=== PATIENT | male | born 1945 | race Caucasian/White ===

== ENCOUNTER 2019-07-12 10:30 | Outpatient (RCR) | payer OTHER, SELFPAY ==
--- NOTE | 2019-05-19 11:15 | HP.PTEVAL_ITS ---
Patient's Visit Information TARIK MEZA is a 74 year old M referred to Physical Therapy by [facility] with a diagnosis of L shoulder pain. Date of Evaluation: 05/19/19 Physical Therapist: Solo Bey, PT, ATC - Visit Plan Frequency: 2-3x /Week Duration: 4-6 Weeks Plan: L shoulder strengthening (rot cuff), scap stab ex's, UBE, and HEP - Subjective Findings: Pt reports he has had L shoulder pain for 7 years. Pt reports his pain had an insidious onset in nature. 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 Pt reports he gets occasional tingling and numbness in his L UE that radiates to the tips of his fingers. Pt denies sleep difficulty at this time as he takes Ambien to fall asleep. Pt denies PMHx. Pt is R hand dominant. Pt notes he has had B knee replacements in the past. Pt reports he is unable to perform any type of overhead lifting secondary to pain. Pt reports he has had injections into his L shoulder every 6-8 weeks for the past year. pt reports his L shoulder pain is a 6/10 at rest, and increases to 8/10 at worst. Pt reports he has had xrays which reveal OA, but not bad enough to have surgery at this time. - Pain L shoulder Pain Intensity (Out of 10): 6 Pain Intensity Range: 8 - Objective Neuro: B UE see sensation is WNL to light touch. B bicepital reflex= 2/3. Palpation: Pt presents with very little muscle mass this date. No obvious deformities at this time. Pt is very sore throughout the distribution of the supraspinatus muscle and LHB tendons. ROM: R shoulder flex= 130, abd= 130, ER= 35, IR WNL; L shoulder flex= 80, abd= 65, ER= 5, IR severely limited (belt line L5). MMT: R shoudler is 5/5 throughout. L shoulder is 3+/5 in available range and painful. Special testing: pt has a positive empty can test which reulted in great pain this date. - Goals Goal 1:: Decrease L shoulder pain x 50% to aid with IADL's Goal Time Frame: 4-6 Weeks Goal 2:: Increase L shoulder flex and abd ROM x 30 degrees to aid with overhead lifting. Goal Time Frame: 4-6 Weeks Goal 3:: Increase L shoulder strength x 1 grade to aid with ADL's Goal Time Frame: 4-6 Weeks Goal 4:: I with HEP Goal Time Frame: 4-6 Weeks - Rehabilitation Potential Physical Therapy Diagnosis: L shoulder pain, weakness, and limited ROM secondary to L shoulder rotator cuff syndrome Rehabilitation Potential: Good - Anticipated Interventions Patient/Client Instruction: Educate patient on: Condition, Plan of Care For the Purpose of:: To improve self management Therapeutic Exercise to Include: Strength training, Endurance training, Flexibilty training, Active ROM, Scapular Strength/Stabilization For the Purpose of:: To decrease pain, To increase ROM, To improve muscle performance and motor function Cryotherapy (ice pack, ice massage): Yes For the Purpose of:: To decrease pain Thank you for the opportunity to evaluate your patient. For Medicare and Medicare HMO plans, please review the plan of care and approve it. It will need to be FAXED BACK to us at [phone] for Medicare purposes. For Medicare only, by signing this I certify the plan of care. Please let me know if there are questions or concerns regarding this plan of care. Physician Signature: Date:
--- NOTE | 2019-07-12 10:58 | HP.PTDCSUM_ITS ---
HP - PT D/C Summary It has been my pleasure to treat TARIK MEZA under orders from ERIBERTO ARANA, for the diagnosis of L shoulder pain for a total of 15 visit(s). Discharge Date: Please see the following information for a summary of their discharge status. - Subjective Subjective: Pt is ready for discharge at this time. He leaves for [place] next week. - Pain L shoulder Pain Intensity (Out of 10): 3 - Overall Improvement % Improvement: 80 - Objective Objective/Function: L shoulder pain 3/10. L shoulder ROM: flex= 115, abd= 105, ER= 20 degrees. L shoulder MMT: Lt shoulder is grossly 4-/5 in available ROM. Pt is I with HEP - Goals Goal 1:: Decrease L shoulder pain x 50% to aid with IADL's Goal 2:: Increase L shoulder flex and abd ROM x 30 degrees to aid with overhead lifting. Goal 3:: Increase L shoulder strength x 1 grade to aid with ADL's Goal 4:: I with HEP - Plan Plan: Discharge - D/C Information If there are questions or concerns regarding this patient's physical therapy, antwan soliman feel free to call me at [phone]. Thank you for the referral of this patient. Sincerely, Solo Bey, PT, ATC
== END 2019-07-12 19:00 | disposition home or self-care (01) ==
LOC: PT 10:30
DX: M25.512 Pain in left shoulder (principal)
CPT/HCPCS: 97110; 97161; 97530

== ENCOUNTER → 2021-03-08 09:51 | Outpatient (CLI) | payer OTHER, SELFPAY ==
[2021-02-04 10:46] VITALS: BMI 23.0
--- NOTE | 2021-03-08 09:54 | MRI_ITS ---
STUDY: MR PELVIS WITHOUT CONTRAST (PROSTATE) REASON FOR EXAM: Male, 76 years old. Intermediate risk for prostate cancer, radiation planning TECHNIQUE: Standardized multiparametric prostate MRI with T1, T2, DWI/ADC sequences were obtained in 3 orthogonal planes, and dynamic contrast enhancement sequences. COMPARISON: 10/06/2020 FINDINGS: The prostate volume measures 13 mm3. The contours of the prostate gland are lobulated. There is mild mass effect on the bladder base. The transition zone is heterogenous. PI-RADS DWI score 2 - Hypointense within a BPH nodule on ADC. PI-RADS T2W score 2 - A mostly encapsulated nodule OR a homogeneous circumscribed nodule without encapsulation (atypical nodule) or a homogeneous mildly hypointense area between nodules.. The peripheral zone is heterogenous. PI-RADS DWI score 4 - Focal moderately hypointense on ADC (image 18 series 701) and markedly hyperintense (image 75 series 7) on high b-value DWI; <1.5cm on axial. PI-RADS T2W score 4 - Circumscribed, homogenous moderate hypointense focus/mass (image 14 series 5) confined to prostate and < 1.5 cm in greatest dimension. The seminal vesicles demonstrate normal margins and T2 signal pattern. No mass lesion or invasion depicted. The rectoprostatic angles are normal. Trabeculated urinary bladder, small volume. There is asymmetric soft tissue fullness of the left UVJ measuring 1 cm on image 8 of series 5. Mild pelvic free fluid posteriorly in the prostate and rectum The vascular structures of the are normal. The visualized hollow viscus structures are normal. No bone marrow edema or mass lesion depicted. MRI/Pelvis (Routine) IMPRESSION: 1. PIRADS v2.1 2019 -- 4 - High (clinically significant cancer is likely). 7 x 11 mm lesion of the left anterior-posterior boundary peripheral zone at the mid-base prostate. 2. No pelvic sidewall adenopathy. 3. Asymmetric thickening of the left UVJ/bladder wall (1 cm) not evident on prior MRI. May represent localized area of cystitis versus neoplasm. Cystoscopy recommended . 4. Mild pelvic free fluid posterior to the prostate. Electronically Signed: Flynn Quijano MD ([place]) at 14:34 EDT , Service support ,
== END ==
PROVIDERS: Referring Provider Student in an Organized Health Care Education/Training Program; Visit Provider Student in an Organized Health Care Education/Training Program
DX: C61 Malignant neoplasm of prostate (principal)
CPT/HCPCS: 72195

== ENCOUNTER 2022-04-15 06:52 | Day surgery (SDC) | payer OTHER, SELFPAY ==
[2021-02-04 10:46] VITALS: BMI 23.0
[2022-04-15] VITALS (7 sets, daily range): BP systolic 90–106; BP diastolic 52–69; PULSE 70–96; RESP 14–16; TEMP 36.3–36.6; O2SAT 98–100; BMI 21.5
--- NOTE | 2022-04-15 07:04 | HP.PCM_ITS ---
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: No Is patient in pain?: No Allergies gabapentin Allergy (Verified 03/21/22 09:35) AnaphylaxisIodinated Contrast Media [CONTRASTS] Allergy (Verified 03/21/22 09:35) Hivespregabalin Allergy (Verified 03/21/22 09:35) Anaphylaxistestosterone Allergy (Verified 03/21/22 09:35) Other Medications Ascorbic Acid [Vitamin C] 500 mg PO DAILY 02/04/21 [History Confirmed 03/21/22] acetaminophen 325 mg PO TID 02/04/21 [History Confirmed 03/21/22] apixaban 5 mg PO BID 02/04/21 [History Confirmed 03/21/22] aspirin 81 mg PO DAILY 02/04/21 [History Confirmed 03/21/22] atenolol 25 mg PO QHS 02/04/21 [History Confirmed 03/21/22] atorvastatin 20 mg PO QHS 02/04/21 [History Confirmed 03/21/22] bisacodyl 10 mg PO QHS 02/04/21 [History Confirmed 03/21/22] calcium carbonate 650 mg PO BID 02/04/21 [History Confirmed 03/21/22] cholecalciferol (vitamin D3) 2,000 unit PO DAILY 02/04/21 [History Confirmed 03/21/22] cyanocobalamin (vitamin B-12) 100 mcg PO DAILY 02/04/21 [History Confirmed 03/21/22] docusate sodium 200 mg PO QHS 02/04/21 [History Confirmed 03/21/22] ferrous sulfate 325 mg PO BID 02/04/21 [History Confirmed 03/21/22] folic acid 1 mg PO DAILY 02/04/21 [History Confirmed 03/21/22] levothyroxine 150 mcg PO DAILY 02/04/21 [History Confirmed 03/21/22] losartan 100 mg PO DAILY 02/04/21 [History Confirmed 03/21/22] omeprazole 20 mg PO BID 02/04/21 [History Confirmed 03/21/22] potassium citrate 10 meq PO 4X/DAY 02/04/21 [History Confirmed 03/21/22] tamsulosin 0.8 mg PO QHS 02/04/21 [History Confirmed 03/21/22] topiramate 200 mg PO BID 02/04/21 [History Confirmed 03/21/22] zolpidem 10 mg PO QHS 02/04/21 [History Confirmed 03/21/22] doxycycline monohydrate 100 mg tablet 100 mg PO? tab 03/21/22 [History Confirmed 03/21/22] PFSH Medical History? Afib BPH (benign prostatic hyperplasia) Coronary arteriosclerosis Hx of radiation therapy Hypothyroidism Kidney stones Normal colonoscopy Papillary thyroid carcinoma Peripheral neuropathy Prostate cancer PTSD (post-traumatic stress disorder) 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 Surgical History? History of bilateral knee replacement History of cataract removal with insertion of prosthetic lens History of foot surgery History of heart artery stent History of hernia repair History of oral surgery History of thyroidectomy Family History? Mother Breast cancer ?? ? remission for 20 years, returned and passed within a few weeksFather Prostate cancer,? Onset Age: 81 ?? ? passed in March 2007Brother AlcoholismGrandmother Pancreatic cancer ?? ? paternal CVA (cerebral vascular accident) ?? ? maternal Social History? Smoking Status:? Former smoker HPI HPI HPI: TARIK MEZA, is a 77 M who presents to the office today for surgical consultation regarding a colonoscopy.? Patient is referred by the [place] [facility] and a written compromise surgical consult and recommendations will return to them.? Patient has a known history of prostate cancer.? In addition he has atrial fibrillation.? Medications include low-dose aspirin and apixaban.? He is also chronically on omeprazole therapy 20 mg twice daily.? Most recent colonoscopy was June 2016 with recommendations for follow-up at 5 years.? The patient has a personal history of colon polyps but it appears that his most recent colonoscopy was not remarkable. He states that remotely he had an upper endoscopy but that has not been for multiple years.? He is completely dependent upon his omeprazole therapy.? He actually is not interested in coming off this medication.? He does not recall a previous history of Valderrama's.? He is not currently having any abdominal pain bright red blood per rectum or melena ROS General General: No weight change, appetite, fatigue, colon cancer, breast cancer or weakness HEENT HEENT: No difficulty swallowing, eye injury, eye surgery, swollen glands or mandy rseness Endo Endocrine: Yes thyroid disease and thyroid cancer; No diabetes mellitus, Hair loss, heat intolerance or cold intolerance Skin Skin: No rash or changing moles Breast Breast: No left breast lump, right breast lump, nipple discharge, breast pain, abnormal mammogram, abnormal US or breast enlargement Musc Musculoskeletal: Yes back problems and arthritis; No rheumatoid arthritis, gout or joint pain Cardio Cardiovascular: Yes atrial fibrillation and heart stent; No murmur, pacemaker, heart disease, high blood pressure, heart attack, palpitations, shortness of breat with exertion or chest pain Psych Psychiatric: No depression, anxiety or hearing voices Resp Respiratory: No shortness of breath, No sleep apnea, No cough, No COPD, No asthma, No emphysema and No wheezing Gastro Gastrointestinal: No abdominal pain, No nausea or vomiting, No diarrhea, No constipation, No blood in stool, No acid reflux, No hemorrhoids, No ulcers, No gallbladder problem and No black,tarry stools Celso Hematologic: Yes blood thinners, No blood disorders, No bleeding, No anemia and No blood clots Neuro Neurologic: No system reviewed and no additional complaints, except as documented, No as per HPI, No abnormal gait, No abnormal hearing, No abnormal movements, No abnormal speech, No behavioral changes, No burning sensations, No confusion, No convulsions, No disequilibrium, No dizziness, No localized weakness, No frequent falls, No headache(s), No lack of coordination, No loss of vision, No memory loss, No numbness, No other visual disturbances, No radicular pain, No restless legs, No sensory deficit, No syncope, No tingling, No tremor(s), No weakness and No other Exam Const General: cooperative, comfortable and no acute distress Orientation: alert and awake [facility] Head: normal to inspection Eyes General: appearance normal, both eyes and all related structures Chest Chest palpation & inspection: normal inspection of the chest Resp Effort & Inspection: normal respiratory effort Auscultation: clear to auscultation bilaterally Cardio Other: Irregular rhythm. GI Other: Soft, nontender, no hepatosplenomegaly, no masses, normal bowel sounds Musc Cervical Spine: normal cervical lordosis Skin General: no rashes or lesions noted Neuro General: patient alert, patient awake and patient oriented x3 Extrem Other: Chronic venous stasis disease with bilateral lower extremity support hose in place Psych Appearance: grossly normal Assessment and Plan Assessment and Plan (1) GERD (gastroesophageal reflux disease): ?Status:?Acute ?Qualifiers: ?Esophagitis presence:?esophagitis presence not specified? Qualified Code(s):?K21.9 - Gastro-esophageal reflux disease without esophagitis (2) Personal history of colonic polyps: ?Status:?Acute ?Plan - Dr. Johnny Tran MD: I recommended the patient a esophagogastroduodenoscopy with possible biopsy or polypectomy as indicated and combined with a colonoscopy with possible biopsy or polypectomy as indicated.? He is aware of the technique, benefit, risk, alternatives.? He is completely dependent upon omeprazole therapy for his reflux disease.? He has had a personal history of colon polyps.? Previous colonoscopy June 2016.? He will hold his apixaban 2 days preoperatively.? We will utilize the [place] prescribed movie prep.? We will utilize monitored anesthesia care.? He has had an opportunity to ask and have questions answered.? We will schedule procedure at his discretion. As of January 27, 2022 hemoglobin 13.1 with hematocrit of 39.1 and a platelet count of 182,000. Copy: [facility] Johnny Tran M.D., F.A.C.S. I have re-examined the patient. There are no clinical changes since date of exam. Johnny Tran M.D., F.A.C.S.
[2022-04-15] MEDS: Lactated Ringers 1,000 ML 15 ML IV (07:18)
--- NOTE | 2022-04-15 08:00 | IMM_PTH ---
PATIENT: TARIK MEZA LOC: EN U#:[id number] AGE/SX: 77/M ROOM: RE04/15/[address]: Dr. Johnny Tran MD : 1945 BED: DIS: 04/15/2022 SPEC #: [id number] RECD: 04/15/22 11:37 STATUS: ARASH KACI #: [id number] QUAN: 04/15/22 08:[address]: Johnny Tran DEPT: IMMUNOHISTOCHEMISTRY RECD BY: Belen Min ENTERED: 04/15/22 11:37 SP TYPE: IMMUNO OT DR: [facility] Tissues: A - Stomach, NOS Procedures: H Pylori (initial) PHYSICIAN & INSTITUTION [place] [id number] SPECIMEN INFORMATION: Tissue Source: A ? Antrum biopsy Clinical Info: GERD, colonic polyps Specimen Number: [id number] CPT code: 61164 METHODOLOGY: Deparaffinized sections of prefer/formalin-fixed tissue or PAP/DQ stained slides are incubated with monoclonal/polyclonal antibodies/oligonucleotide probes. Localization is made via biotin free immunoperoxidase method. Appropriate controls are performed and reacted as expected. Results on target cell population are indicated in the following table: RESULTS: ANTIBODY / CLONE RESULT Block A H Pylori (polyclonal) negative These tests were developed and their performance characteristics determined by [facility]. They may not have been cleared or approved by the U.S. Food and Drug Administration. The FDA has determined that such clearance or approval is not necessary. The above immunohistochemical/dualISH markers are ordered and reviewed by the Pathologist. INTERPRETATION: A. Antrum, biopsy: Negative for Helicobacter pylori organisms. AM:orquidea 04/16/2022
--- NOTE | 2022-04-15 08:00 | COLBX_PTH ---
PATIENT: TARIK MEZA LOC: EN U#:[id number] AGE/SX: 77/M ROOM: RE04/15/[address]: Dr. Johnny Tran MD : 1945 BED: DIS: 04/15/2022 SPEC #: [id number] RECD: 04/15/22 10:51 STATUS: ARASH KACI #: [id number] QUAN: 04/15/22 08:[address]: Johnny Tran DEPT: SURGICAL PATHOLOGY RECD BY: Geetha Oquendo ENTERED: 04/15/22 13:09 SP TYPE: COLON BX OTHR DR: [facility] Tissues: A - Gastric mucous membrane B - COLON BIOPSY C - Esophagus, NOS D - Rectum, NOS Procedures: Special Stain Group II Surgery Specimen Level IV Alcian Blue/PAS (control) HEADER OPERATION: Colonoscopy, EGD ([facility]), biopsy PRE-OP DIAGNOSIS: GERD, history colonic polyps TISSUE SUBMITTED: A ? Antrum biopsy for histo and H. pylori, B ? Greater curvature polyp biopsy, C ? Distal esophagus biopsy, D ? Rectal polyp biopsy MICROSCOPIC DIAGNOSIS A. Gastric antrum, biopsy: Mild chronic gastritis. See comment. B. Greater curvature gastric polyp, biopsy: Fundic gland polyp. C. Distal esophagus, biopsy: Gastroesophageal junctional mucosa with mild chronic inflammation. No evidence of goblet cell metaplasia. See comment. D. Rectal polyp, biopsy: Hyperplastic polyp. AM:orquidea 04/16/2022 COMMENT A. The results of immunohistochemistry for Helicobacter pylori will be reported separately ([id number]). C. Alcian blue/PAS stain with matched control supports the above diagnosis. MICROSCOPIC DESCRIPTION Slides are reviewed. GROSS DESCRIPTION A - Received in fixative is one container labeled with the patient's name and designated antrum biopsy. The specimen consists of two irregular fragments of light dunaway soft tissue that in aggregate measure 0.8 x 0.4 x 0.1 cm. The specimen is totally submitted in one cassette. B - Received in fixative is one container labeled with the patient's name and designated greater curvature polyp biopsy. The specimen consists of one irregular fragment of light dunaway soft tissue that measures 0.4 x 0.4 x 0.1 cm. The specimen is totally submitted in one cassette. C - Received in fixative is one container labeled with the patient's name and designated distal esophagus biopsy. The specimen consists of multiple irregular fragments of light dunaway soft tissue that in aggregate measure 1 x 0.3 x 0.1 cm. The specimen is totally submitted in one cassette. D - Received in fixative is one container labeled with the patient's name and designated rectal polyp biopsy. The specimen consists of one irregular fragment of light dunaway soft tissue that measures 0.3 x 0.3 x 0.1 cm. The specimen is totally submitted in one cassette. / SJ:rg 04/15/2022 TC:3 CPT: 53301 x4, 96193
--- NOTE | 2022-04-15 08:55 | OP.EGD_ITS ---
Patient Name: Brady Roland Procedure Date: 04/15/2022 8:18 AM Date of : 1945 Age: 77 Procedure: Upper GI endoscopy Indications: Epigastric abdominal pain Providers: Johnny Tran MD Medicines: See the Anesthesia note for documentation of the administered medications Complications: No immediate complications. Procedure: Pre-Anesthesia Assessment: - Prior to the procedure, a History and Physical was performed, and patient medications and allergies were reviewed. The patient's tolerance of previous anesthesia was also reviewed. The risks and benefits of the procedure and the sedation options and risks were discussed with the patient. All questions were answered, and informed consent was obtained. Prior Anticoagulants: The patient has taken Eliquis (apixaban), last dose was 2 days prior to procedure. ASA Grade Assessment: III - A patient with severe systemic disease. After reviewing the risks and benefits, the patient was deemed in satisfactory condition to undergo the procedure. After obtaining informed consent, the endoscope was passed under direct vision. Throughout the procedure, the patient's blood pressure, pulse, and oxygen saturations were monitored continuously. The colonoscope was introduced through the mouth, and advanced to the second part of duodenum. The upper GI endoscopy was accomplished without difficulty. The patient tolerated the procedure well. Scope In: 8:27:08 AM Scope Out: 8:34:33 AM Total Procedure Duration Time 0 hours 7 minutes 25 seconds Findings: LA Grade A (one or more mucosal breaks less than 5 mm, not extending between tops of 2 mucosal folds) esophagitis with no bleeding was found 41 cm from the incisors. Biopsies were taken with a cold forceps for histology. A 4 cm hiatal hernia was present. Localized moderate inflammation characterized by shallow ulcerations was found in the gastric antrum. Biopsies were taken with a cold forceps for histology. The examined duodenum was normal. Multiple sessile polyps with no bleeding and no stigmata of recent bleeding were found on the greater curvature of the stomach. The polyp was removed with a cold biopsy forceps. Resection and retrieval were complete. Impression: - LA Grade A reflux esophagitis. Biopsied. - 4 cm hiatal hernia. - Acute chronic gastritis. Biopsied. - Normal examined duodenum. Recommendation: - Discharge patient to home. - Resume previous diet. - Continue present medications. - Use sucralfate tablets 1 gram PO BID. Procedure Code(s): --- Professional --- 36204, Esophagogastroduodenoscopy, flexible, transoral; with biopsy, single or multiple Diagnosis Code(s): --- Professional --- K21.0, Gastro-esophageal reflux disease with esophagitis K44.9, Diaphragmatic hernia without obstruction or gangrene K29.00, Acute gastritis without bleeding K29.50, Unspecified chronic gastritis without bleeding R10.13, Epigastric pain CPT copyright 2017 [employer]. All rights reserved. The codes documented in this report are preliminary and upon professional nurse review may be revised to meet current compliance requirements. Johnny Tran MD 04/15/2022 8:54:56 AM This report has been signed electronically. Number of Addenda: 0 Note Initiated On: 04/15/2022 8:18 AM
--- NOTE | 2022-04-15 08:55 | OP.CCLET_ITS ---
04/15/2022 See above [facility] Re : Upper GI endoscopy procedure for Brady Roland Dear [facility] This procedure was performed on Friday, April 15, 2022. My impressions and recommendations are as follows: Impressions : - LA Grade A reflux esophagitis. Biopsied. - 4 cm hiatal hernia. - Acute chronic gastritis. Biopsied. - Normal examined duodenum. Recommendations : - Discharge patient to home. - Resume previous diet. - Continue present medications. - Use sucralfate tablets 1 gram PO BID. My findings are described in the full procedure note, which is enclosed. If I can be of further assistance, please feel free to contact me at Doctor phone number(s): Work: . Sincerely, Johnny Tran MD 04/15/2022 8:54:56 AM This report has been signed electronically.
--- NOTE | 2022-04-15 09:01 | OP.COLON_ITS ---
Patient Name: Brady Roland Procedure Date: 04/15/2022 8:34 AM Date of : 1945 Age: 77 Procedure: Colonoscopy Indications: High risk colon cancer surveillance: Personal history of colonic polyps Providers: Johnny Tran MD Medicines: See the Anesthesia note for documentation of the administered medications Patient Profile: Last Colonoscopy: June 2016. Complications: No immediate complications. Procedure: Pre-Anesthesia Assessment: - Prior to the procedure, a History and Physical was performed, and patient medications and allergies were reviewed. The patient's tolerance of previous anesthesia was also reviewed. The risks and benefits of the procedure and the sedation options and risks were discussed with the patient. All questions were answered, and informed consent was obtained. Prior Anticoagulants: The patient has taken Eliquis (apixaban), last dose was 2 days prior to procedure. ASA Grade Assessment: III - A patient with severe systemic disease. After reviewing the risks and benefits, the patient was deemed in satisfactory condition to undergo the procedure. After I obtained informed consent, the scope was passed under direct vision. Throughout the procedure, the patient's blood pressure, pulse, and oxygen saturations were monitored continuously. The colonoscope was introduced through the anus and advanced to the cecum, identified by appendiceal orifice and ileocecal valve. The colonoscopy was performed without difficulty. The patient tolerated the procedure well. The quality of the bowel preparation was fair. Scope In: 8:35:46 AM Scope Withdrawal Time 0 hours 7 minutes 35 seconds Scope Out: 8:47:33 AM Total Procedure Duration Time 0 hours 11 minutes 47 seconds Findings: Hemorrhoids were found on perianal exam. A 3 mm polyp was found in the rectum. The polyp was sessile. The polyp was removed with a cold biopsy forceps. Resection and retrieval were complete. Semi-liquid stool was found in the ascending colon, interfering with visualization. Impression: - Preparation of the colon was fair. - Hemorrhoids found on perianal exam. - One 3 mm polyp in the rectum, removed with a cold biopsy forceps. Resected and retrieved. - Stool in the ascending colon. Recommendation: - Discharge patient to home. - Resume previous diet. - Continue present medications. - Repeat colonoscopy for surveillance. Melanotic stool. Likely secondary to acute gastritis. Will add carafate to pt already on omeprazole. Procedure Code(s): --- Professional --- 82745, Colonoscopy, flexible; with biopsy, single or multiple Diagnosis Code(s): --- Professional --- Z86.010, Personal history of colonic polyps K64.9, Unspecified hemorrhoids K62.1, Rectal polyp CPT copyright 2017 [employer]. All rights reserved. The codes documented in this report are preliminary and upon tours hostess review may be revised to meet current compliance requirements. Johnny Tran MD 04/15/2022 9:00:47 AM This report has been signed electronically. Number of Addenda: 0 Note Initiated On: 04/15/2022 8:34 AM
--- NOTE | 2022-04-15 09:01 | OP.CCLET_ITS ---
04/15/2022 See above [facility] Re : Colonoscopy procedure for Brady Roland Dear [facility] This procedure was performed on Friday, April 15, 2022. My impressions and recommendations are as follows: Impressions : - Preparation of the colon was fair. - Hemorrhoids found on perianal exam. - One 3 mm polyp in the rectum, removed with a cold biopsy forceps. Resected and retrieved. - Stool in the ascending colon. Recommendations : - Discharge patient to home. - Resume previous diet. - Continue present medications. - Repeat colonoscopy for surveillance. Melanotic stool. Likely secondary to acute gastritis. Will add carafate to pt already on omeprazole. My findings are described in the full procedure note, which is enclosed. If I can be of further assistance, please feel free to contact me at Doctor phone number(s): Work: . Sincerely, Johnny Tran MD 04/15/2022 9:00:47 AM This report has been signed electronically.
--- NOTE | 2022-04-15 09:50 | SUR.PHASEII ---
PER PHARMACY, CARAFATE SCRIPT WOULD NEED TO BE PAID [place] SINCE [facility] NOT CONTRACTED WITH [facility]. PATIENT AGREED TO PURCHASE ONE WEEK OF SCRIPT AND THEN WILL SHOWROOM SALES ASSISTANT SCRIPT AT [facility] LOCATED ON [address], [place]. THIS RN ATTEMPTED TO CALL SCRIPT TO [facility] BUT INFORMED NEW SCRIPTS MUST BE SENT VIA eSCRIPT OR FAX. CONTACTED KERI JENNINGS, AT DR GRAVES'S OFFICE WHO WILL FAX/eSCRIPT TO [facility].
== END 2022-04-15 10:21 | disposition home or self-care (01) ==
LOC: EN 06:54 → AC 06:55
PROVIDERS: Referring Provider Surgery; Visit Provider Surgery
PROC: 0DJD8ZZ Inspection of Lower Intestinal Tract, Via Natural or Artificial Opening Endoscopic (ICD-10-PCS; CPT 45378; principal; 2022-04-15 07:55)
DX: K29.50 Unspecified chronic gastritis without bleeding (principal); I48.91 Unspecified atrial fibrillation; K62.1 Rectal polyp; Z86.010 Personal history of colon polyps; K31.7 Polyp of stomach and duodenum; K21.00 Gastro-esophageal reflux disease with esophagitis, without bleeding; N40.0 Benign prostatic hyperplasia without lower urinary tract symptoms; F43.10 Post-traumatic stress disorder, unspecified; G62.9 Polyneuropathy, unspecified; E03.9 Hypothyroidism, unspecified; Z87.442 Personal history of urinary calculi; Z85.850 Personal history of malignant neoplasm of thyroid; Z85.46 Personal history of malignant neoplasm of prostate; I25.10 Atherosclerotic heart disease of native coronary artery without angina pectoris; Z79.82 Long term (current) use of aspirin; Z79.01 Long term (current) use of anticoagulants; Z79.899 Other long term (current) drug therapy; Z95.5 Presence of coronary angioplasty implant and graft; Z87.891 Personal history of nicotine dependence; I10 Essential (primary) hypertension; K44.9 Diaphragmatic hernia without obstruction or gangrene; K64.9 Unspecified hemorrhoids
CPT/HCPCS: 45380; 43239; 88305; 88313; 88342; J7120; J2405

== ENCOUNTER 2023-02-25 00:32 | Emergency (ER) | payer OTHER, SELFPAY ==
[2021-02-04 10:46] VITALS: BMI 23.0
[2023-02-25 00:33] VITALS: BP 125/107; PULSE 86; RESP 15; TEMP 36.8; O2SAT 99
--- NOTE | 2023-02-25 02:01 | EX.ED.DYSGE1 ---
HPI History of Present Illness Chief Complaint: Complaint Narrative Narrative: Patient is a 78-year-old male with past medical history of prostate cancer status postradiation as well as paroxysmal atrial fibrillation on Eliquis. He had a cystoscopy done 5 days ago by the [facility] and was told he has a bladder stone. He states has been doing well but then on Thursday began with hematuria and around 4:00 pm stopped urinating. He states as time progressed he could not force any urine out and he began to have increasing pain in the abdomen and secondary to this comes in for evaluation [facility] Medical History (Updated 02/25/23 @ 05:[address] Calros Lopez, DO) Arthritis BPH (benign prostatic hyperplasia) Cancer Cardiology follow-up encounter Coronary arteriosclerosis DVT (deep venous thrombosis) Former smoker Gastric reflux History of atrial fibrillation History of echocardiogram History of edema History of pain when walking History of stress test Hx of radiation therapy Hypertension Hypothyroidism Injury of back Injury of head and neck Kidney stones Leg cramps Loss of hearing Low iron Normal colonoscopy Papillary thyroid carcinoma Peripheral neuropathy Prostate cancer Prostate disease PTSD (post-traumatic stress disorder) 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 Wears dentures Wears glasses Wears partial dentures Home Medications Ascorbic Acid [Vitamin C] 500 mg PO DAILY 02/04/21 [History Last Taken Unknown] acetaminophen 325 mg tablet 325 mg PO TID 02/04/21 [History Last Taken Unknown] apixaban 5 mg tablet 5 mg PO BID 02/04/21 [History Last Taken 04/12/22] aspirin 81 mg tablet,delayed release 81 mg PO DAILY 02/04/21 [History Last Taken 04/12/22] atenolol 25 mg tablet 25 mg PO QHS 02/04/21 [History Last Taken Unknown] atorvastatin 20 mg tablet 20 mg PO QHS 02/04/21 [History Last Taken Unknown] bisacodyl 5 mg tablet 10 mg PO QHS 02/04/21 [History Last Taken Unknown] calcium carbonate 600 mg calcium (1,500 mg) tablet 650 mg PO BID 02/04/21 [History Last Taken Unknown] cholecalciferol (vitamin D3) 50 mcg (2,000 unit) capsule 2,000 unit PO DAILY 02/04/21 [History Last Taken Unknown] cyanocobalamin (vitamin B-12) 100 mcg tablet 100 mcg PO DAILY 02/04/21 [History Last Taken Unknown] docusate sodium 100 mg capsule 200 mg PO QHS 02/04/21 [History Last Taken Unknown] ferrous sulfate 325 mg (65 mg iron) tablet 325 mg PO BID 02/04/21 [History Last Taken Unknown] folic acid 1 mg tablet 1 mg PO DAILY 02/04/21 [History Last Taken Unknown] levothyroxine 150 mcg tablet 150 mcg PO MOTUWETHFRSA 02/04/21 [History Last Taken 04/15/22 06:30] losartan 100 mg tablet 100 mg PO DAILY 02/04/21 [History Last Taken Unknown] omeprazole 20 mg capsule,delayed release 20 mg PO BID 02/04/21 [History Last Taken Unknown] potassium citrate 10 mEq (1,080 mg) tablet,extended release 10 meq PO 4X/DAY 02/04/21 [History Last Taken Unknown] tamsulosin 0.4 mg capsule 0.8 mg PO QHS 02/04/21 [History Last Taken Unknown] zolpidem 10 mg tablet 10 mg PO QHS 02/04/21 [History Last Taken Unknown] pregabalin 100 mg capsule 100 mg PO QHS 04/11/22 [History Last Taken Unknown] sucralfate 1 gram tablet (Carafate) 1 g PO BID #180 tabs 04/15/22 [Rx Last Taken Unknown] Allergy/AdvReac Type Severity Reaction Status Date / Time No Known Allergies Allergy Verified 02/25/23 00:37 Family History Mother Breast cancer remission for 20 years, returned and passed within a few weeks Father Prostate cancer, Onset Age: 81 passed in March 2007 Brother Alcoholism Grandmother Pancreatic cancer paternal CVA (cerebral vascular accident) maternal Surgical History (Updated 04/11/22 @ 09:30 by Melodie Dumont) History of bilateral knee replacement History of cardiac catheterization History of cataract removal with insertion of prosthetic lens History of foot surgery History of heart artery stent History of hernia repair History of oral surgery History of thyroidectomy Social History Smoking Status: Former smoker ROS ROS ED Constitutional Constitutional ED: Denies chills or fever(s) ENT ENT ED: Denies sore throat Cardiovascular Cardiovascular: Denies chest pain Respiratory/Chest Respiratory/Chest: Denies cough or dyspnea Gastrointestinal Gastrointestinal: Reports abdominal pain; Denies diarrhea, nausea or vomiting Genitourinary Genitourinary ED: Reports other Details: Positive anuria ; Denies dysuria Musculoskeletal Musculoskeletal: Denies back pain or myalgias Integumentary Denies rash Neurologic Neurologic: Denies headache(s) Hematologic/Lymphatic Hematologic/Lymphatic: Reports easy bleeding and easy bruising EXAM Physical Exam Const Vital Signs: 02/25/23 00:33 02/25/23 02:10 Temperature 98.2 F Temperature Source Oral Pulse Rate 86 72 Respiratory Rate 15 16 Blood Pressure 125/107 H 134/69 H Blood Pressure Mean 113 Pulse Ox 99 97 Oxygen Delivery Method Room Air Positive well nourished and well developed General Appearance ED: well developed HEENT HEENT Narrative: Normocephalic atraumatic Eyes PERRL and EOMs intact bilaterally Neck supple Resp normal respiratory effort and clear to auscultation bilaterally Cardio regular rate and regular rhythm GI GI Narrative: Patient has organomegaly/distention in the lower mid abdomen/suprapubic region consistent with a distended bladder and acute urinary retention. There is pain with palpation at the site. Remainder the abdominal exam is normal Auscultation: normoactive bowel sounds Palpation: soft Narrative: Dried blood noted at the urethral meatus no active bleeding or discharge present Back/Spine no CVA tenderness Extremity normal to inspection Neuro oriented x3 and CN's II-XII intact bilaterally Sensorium / Orientation: alert Psych mental status grossly normal Skin no rashes or lesions noted MDM MDM MDM Narrative Medical decision making narrative: Patient presented to the ER with stable vitals and a history consistent with acute urinary retention secondary to coagulation of blood. A Mathis catheter was placed and there was decompression of the patient's bladder and resolution of symptoms. The resulting fluid was a mixture of blood and urine. The patient was washed in the ER and the Mathis catheter continued to drain indicating there was no secondary obstruction. At this time vitals are stable he is only had roughly 8 hours of lack of urination and my concern for acute kidney injury is low. Also as vitals are stable such as blood pressure and heart rate my concern for acute blood loss anemia is low as well. Therefore do not feel there is need for laboratory studies or continuous irrigation. Patient will be discharged and he can follow-up with urology on an outpatient basis and he understands to return if there is lightheadedness or dizziness indicating persistent bleeding or clotting of the Mathis catheter tube. This plan of care was discussed with patient and family and both are agreeable to it History & Record Review Discussion w/independent historian: Patient and Family Discharge Plan Triage Chief Complaint: Complaint ED Provider: Carlos Lopez Dx/Rx/DC Orders Clinical Impression: Acute urinary retention, Prostate cancer, Current use of equipment operator intermodal yard anticoagulation Instructions: ED Urinary Retention, Male Prescriptions: No Action Ascorbic Acid [Vitamin C] 500 MG tablet 500 mg PO DAILY acetaminophen 325 MG tablet 325 mg PO TID atorvastatin 20 MG tablet 20 mg PO QHS cyanocobalamin (vitamin B-12) 100 MCG tablet 100 mcg PO DAILY atenolol 25 MG tablet 25 mg PO QHS aspirin 81 MG tablet,delayed release (DR/EC) 81 mg PO DAILY calcium carbonate 600 MG tablet 650 mg PO BID tamsulosin 0.4 MG capsule 0.8 mg PO QHS ferrous sulfate 325 MG tablet 325 mg PO BID levothyroxine 150 MCG tablet 150 mcg PO MOTUWETHFRSA Rx Instructions: takes 1/2 tab on Sundays docusate sodium 100 MG capsule 200 mg PO QHS omeprazole 20 MG capsule 20 mg PO BID folic acid 1 MG tablet 1 mg PO DAILY zolpidem 10 MG tablet 10 mg PO QHS losartan 100 MG tablet 100 mg PO DAILY bisacodyl 5 MG tablet 10 mg PO QHS cholecalciferol (vitamin D3) 2,000 UNIT capsule 2,000 unit PO DAILY apixaban 5 MG tablet 5 mg PO BID potassium citrate 10 MEQ tablet extended release 10 meq PO 4X/DAY pregabalin 100 mg Capsule 100 mg PO QHS sucralfate [Carafate] 1 gram tablet 1 g PO BID Qty: 180 2RF [facility] Referrals: Martin Figueroa MD [Med Staff - Active Staff] - [facility] [Primary Care Provider] - Activity Restrictions/Additional Instructions: Continue to hold your Eliquis secondary to the prostatic bleeding. If you feel lightheaded or dizzy with standing or you notice that there is no longer drainage from the catheter or have any further concerns please return for repeat evaluation. Otherwise follow-up with urology to discuss need for catheter removal. Disposition Disposition: Home, Self Care Discharge Date/Time: 02/25/23 02:17
[2023-02-25 02:10] VITALS: BP 134/69; PULSE 72; RESP 16; O2SAT 97
== END 2023-02-25 02:17 | disposition home or self-care (01) ==
PROVIDERS: Emergency Provider Emergency Medicine; Visit Provider Emergency Medicine
DX: R33.9 Retention of urine, unspecified (principal); I48.0 Paroxysmal atrial fibrillation; C61 Malignant neoplasm of prostate; I10 Essential (primary) hypertension; Z79.01 Long term (current) use of anticoagulants; I25.10 Atherosclerotic heart disease of native coronary artery without angina pectoris; Z87.891 Personal history of nicotine dependence; Z79.82 Long term (current) use of aspirin; Z86.718 Personal history of other venous thrombosis and embolism; E03.9 Hypothyroidism, unspecified; K21.9 Gastro-esophageal reflux disease without esophagitis; N40.0 Benign prostatic hyperplasia without lower urinary tract symptoms; Z95.5 Presence of coronary angioplasty implant and graft
CPT/HCPCS: 99282

== ENCOUNTER 2023-08-10 21:13 | Emergency (ER) | payer OTHER, SELFPAY ==
[2021-02-04 10:46] VITALS: BMI 23.0
[2023-08-10 21:14] VITALS: BP 145/64; PULSE 75; RESP 16; TEMP 36.1; O2SAT 99; BMI 22.7
[2023-08-10 23:10] LABS: Mucous, Urine 0 SEEN /hpf (<or=2+); Squamous Epithelial Cells - UA 0 SEEN /hpf (0-5)
[2023-08-10 23:12] LABS: Color, Urine Yellow (Yellow); Glucose, Dipstick Normal (Normal); Ketone-Dipstick Negative (Negative); Leukocyte Esterase-Dipstick 500 /ul (Negative); Nitrite-Dipstick Positive (Negative); Occult Blood-Urine 250 /ul (Negative); Protein-Dipstick 100 mg/dl (Negative); Urine Bilirubin Dipstick Negative (Negative); Urine Clarity Cloudy (Clear); Urine Urobilinogen Normal (Normal); Urine pH 6.5 (5.0 - 8.0)
[2023-08-10 23:40] LABS: Bacteria 3+ /hpf (None Seen); Red Blood Cells-Urine 25-50 SEEN /hpf (0-5); White Blood Cells >100 SEEN /hpf (0-5)
--- NOTE | 2023-08-11 00:32 | EDS_ITS ---
HPI History of Present Illness Chief Complaint: Complaint Informant: patient and spouse/S.O. Narrative Narrative: 78-year-old male presenting to the emergency department difficulty urinating. Patient has a history of prostate cancer treated with TURP and radiation. He states that earlier this year he had an episode of urinary retention he was treated with a catheter and he saw urology through the [facility] in [place]. In April he underwent surgery for a bladder stone. He states that since that time he has had some intermittent what he describes as pus drainage from the urethra. He states that tonight he could not urinate for about 5 to 6 hours. After trying multiple times he states he had a hard thing of pus come out and he was able to decompress his bladder. He denies any fevers. Denies any rectal pain. He is scheduled for a cystoscopy on the with the [facility] in [place] in the office. He is currently on apixaban. The patient notes chronic difficulty with his stream. [facility] Medical History Arthritis Bladder stones BPH (benign prostatic hyperplasia) Cancer Cardiology follow-up encounter Coronary arteriosclerosis DVT (deep venous thrombosis) Former smoker Gastric reflux History of atrial fibrillation History of echocardiogram History of edema History of pain when walking History of stress test Hx of radiation therapy Hypertension Hypothyroidism Injury of back Injury of head and neck Kidney stones Leg cramps Loss of hearing Low iron Normal colonoscopy Papillary thyroid carcinoma Peripheral neuropathy Prostate cancer Prostate disease PTSD (post-traumatic stress disorder) 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 Wears dentures Wears glasses Wears partial dentures Home Medications Ascorbic Acid [Vitamin C] 500 mg PO DAILY 02/04/21 [History Last Taken Unknown] acetaminophen 325 mg tablet 325 mg PO TID 02/04/21 [History Last Taken Unknown] apixaban 5 mg tablet 5 mg PO BID 02/04/21 [History Last Taken 04/12/22] aspirin 81 mg tablet,delayed release 81 mg PO DAILY 02/04/21 [History Last Taken 04/12/22] atenolol 25 mg tablet 25 mg PO QHS 02/04/21 [History Last Taken Unknown] atorvastatin 20 mg tablet 20 mg PO QHS 02/04/21 [History Last Taken Unknown] bisacodyl 5 mg tablet 10 mg PO QHS 02/04/21 [History Last Taken Unknown] calcium carbonate 600 mg calcium (1,500 mg) tablet 650 mg PO BID 02/04/21 [History Last Taken Unknown] cholecalciferol (vitamin D3) 50 mcg (2,000 unit) capsule 2,000 unit PO DAILY 02/04/21 [History Last Taken Unknown] cyanocobalamin (vitamin B-12) 100 mcg tablet 100 mcg PO DAILY 02/04/21 [History Last Taken Unknown] docusate sodium 100 mg capsule 200 mg PO QHS 02/04/21 [History Last Taken Unknown] ferrous sulfate 325 mg (65 mg iron) tablet 325 mg PO BID 02/04/21 [History Last Taken Unknown] folic acid 1 mg tablet 1 mg PO DAILY 02/04/21 [History Last Taken Unknown] levothyroxine 150 mcg tablet 150 mcg PO MOTUWETHFRSA 02/04/21 [History Last Taken 04/15/22 06:30] losartan 100 mg tablet 100 mg PO DAILY 02/04/21 [History Last Taken Unknown] omeprazole 20 mg capsule,delayed release 20 mg PO BID 02/04/21 [History Last Taken Unknown] potassium citrate 10 mEq (1,080 mg) tablet,extended release 10 meq PO 4X/DAY 02/04/21 [History Last Taken Unknown] tamsulosin 0.4 mg capsule 0.8 mg PO QHS 02/04/21 [History Last Taken Unknown] zolpidem 10 mg tablet 10 mg PO QHS 02/04/21 [History Last Taken Unknown] pregabalin 100 mg capsule 100 mg PO QHS 04/11/22 [History Last Taken Unknown] sucralfate 1 gram tablet (Carafate) 1 g PO BID #180 tabs 04/15/22 [Rx Last Taken Unknown] ciprofloxacin HCl 500 mg tablet 500 mg PO BID #10 TABLETS 08/11/23 [Rx Last Taken Unknown] Allergy/AdvReac Type Severity Reaction Status Date / Time No Known Allergies Allergy Verified 08/10/23 21:14 Family History Mother Breast cancer remission for 20 years, returned and passed within a few weeks Father Prostate cancer, Onset Age: 81 passed in March 2007 Brother Alcoholism Grandmother Pancreatic cancer paternal CVA (cerebral vascular accident) maternal Surgical History History of bilateral knee replacement History of cardiac catheterization History of cataract removal with insertion of prosthetic lens History of foot surgery History of heart artery stent History of hernia repair History of oral surgery History of thyroidectomy Social History Smoking Status: Former smoker ROS ROS ED Constitutional Constitutional ED: Denies chills or weight loss Eyes Eyes: Denies change in vision or diplopia ENT ENT ED: Denies ear pain, rhinorrhea or sore throat Cardiovascular Cardiovascular: Denies chest pain, orthopnea, palpitations or racing heartbeat Respiratory/Chest Respiratory/Chest: Denies cough, dyspnea or orthopnea Gastrointestinal Gastrointestinal: Denies abdominal pain, diarrhea, nausea or vomiting Genitourinary Genitourinary ED: Reports other Details: See history of present illness ; Denies dysuria, hematuria or urinary frequency Musculoskeletal Musculoskeletal: Denies arthralgias, back pain, myalgias or neck pain Integumentary Denies abscess or rash Neurologic Neurologic: Denies headache(s) or weakness Psychiatric Psychiatric: Denies anxiety, depression, suicidal ideation or suicidal thoughts Endocrine Endocrinology: Denies polydipsia, polyphagia or polyuria Allergic/Immunologic Allergic/Immunologic ED: Denies mouth swelling, tongue swelling or urticaria EXAM Physical Exam Const Vital Signs: 08/10/23 21:14 Temperature 97 F L Temperature Source Temporal Pulse Rate 75 Respiratory Rate 16 Blood Pressure 145/64 H Blood Pressure Mean 91 Pulse Ox 99 Oxygen Delivery Method Room Air Positive well nourished and well developed General Appearance ED: well developed HEENT Reports normocephalic, head/scalp atraumatic and moist mucous membranes Eyes PERRL and EOMs intact bilaterally Neck no lymphadenopathy, supple and no JVD Resp normal respiratory effort and clear to auscultation bilaterally Cardio regular rate, regular rhythm and no murmurs GI normal to inspection, nondistended, normoactive bowel sounds and non-tender Palpation: soft Narrative: Circumcised male. There is no drainage from the urethra. No erythema. Back/Spine no CVA tenderness and normal ROM Extremity normal to inspection General Extremety ED: Negative for edema General Extremity: Negative for edema Neuro oriented x3 and CN's II-XII intact bilaterally Sensorium / Orientation: alert Motor Exam: strength 5/5 throughout Psych mental status grossly normal Mood & Affect: Negative for depressed or tearful Skin no rashes or lesions noted and no wounds MDM MDM MDM Narrative Medical decision making narrative: I do not see bladder stone on bedside ultrasound. Urinalysis shows greater than 100 white cells 25-50 red cells positive nitrates 3+ bacteria and positive leukocyte esterase. This was sent for culture. Patient does not wish to have a catheter. He was encouraged to drink plenty of fluids. He has ciprofloxacin 500 mg tablets (9 pills) already at home and is wondering if this will work. I will give him a dose of ciprofloxacin here this will give him 5 full days of coverage. I will write a prescription for an additional 5 days but not to fill it until we get the culture back. He was instructed that if he did not receive a call back changing his antibiotic to go ahead and fill the prescription and take it. He was explicitly told to inform his surgeon/surgeon's office of the recent infection and the need for antibiotics. The patient understands that he is at risk for urinary retention and to return if that should occur and at that time he would need a catheter. Lab Data Attestation: I reviewed the patient's lab results. Labs: Laboratory Results - last 24 hr 08/10/23 23:00 Urine Color Yellow Urine Clarity Cloudy Urine pH 6.5 Ur Specific Kirby 1.010 Urine Protein 100 H Urine Glucose (UA) Normal Urine Ketones Negative Urine Occult Blood 250 H Urine Nitrite Positive H Urine Bilirubin Negative Urine Urobilinogen Normal Ur Leukocyte Esterase 500 H Urine RBC 25-50 SEEN Urine WBC >100 SEEN Ur Squamous Epith Cells 0 SEEN Urine Bacteria 3+ Urine Mucus 0 SEEN Discharge Plan Triage Chief Complaint: Complaint ED Provider: Lul Freeman Dx/Rx/DC Orders Clinical Impression: Acute UTI, Acute urinary retention Instructions: ED Bladder Infection, Male (Adult) Prescriptions: New ciprofloxacin HCl [ciprofloxacin HCl] 500 mg tablet 500 mg PO BID Qty: 10 0RF No Action Ascorbic Acid [Vitamin C] 500 MG tablet 500 mg PO DAILY acetaminophen 325 MG tablet 325 mg PO TID atorvastatin 20 MG tablet 20 mg PO QHS cyanocobalamin (vitamin B-12) 100 MCG tablet 100 mcg PO DAILY atenolol 25 MG tablet 25 mg PO QHS aspirin 81 MG tablet,delayed release (DR/EC) 81 mg PO DAILY calcium carbonate 600 MG tablet 650 mg PO BID tamsulosin 0.4 MG capsule 0.8 mg PO QHS ferrous sulfate 325 MG tablet 325 mg PO BID levothyroxine 150 MCG tablet 150 mcg PO MOTUWETHFRSA Rx Instructions: takes 1/2 tab on Sundays docusate sodium 100 MG capsule 200 mg PO QHS omeprazole 20 MG capsule 20 mg PO BID folic acid 1 MG tablet 1 mg PO DAILY zolpidem 10 MG tablet 10 mg PO QHS losartan 100 MG tablet 100 mg PO DAILY bisacodyl 5 MG tablet 10 mg PO QHS cholecalciferol (vitamin D3) 2,000 UNIT capsule 2,000 unit PO DAILY apixaban 5 MG tablet 5 mg PO BID potassium citrate 10 MEQ tablet extended release 10 meq PO 4X/DAY pregabalin 100 mg Capsule 100 mg PO QHS sucralfate [Carafate] 1 gram tablet 1 g PO BID Qty: 180 2RF Primary Care Provider: [facility] Referrals: [facility] [Primary Care Provider] - (Please call your surgeon's office tomorrow morning and inform them of the infection.) Activity Restrictions/Additional Instructions: Please cannot taking the ciprofloxacin 500 mg twice a day (this are the pills that you currently have) The urine culture should return in 48 to 72 hours. If the antibiotic needs to be changed we will call you. If however you do not receive a phone call please fill the rest of the ciprofloxacin prescription to complete a 10-day course. It is important for your surgeon to be aware of this infection. As discussed it is possible that you may need a Mathis catheter for urinary retention but at this time this has resolved and we will forego a catheter at this time Disposition Disposition: Home, Self Care
[2023-08-11] MEDS: Ciprofloxacin 500 MG Tablet PO (00:53)
== END 2023-08-11 00:54 | disposition home or self-care (01) ==
PROVIDERS: Emergency Provider Emergency Medicine; Visit Provider Emergency Medicine
DX: N39.0 Urinary tract infection, site not specified (principal); Z87.891 Personal history of nicotine dependence; I10 Essential (primary) hypertension; R33.9 Retention of urine, unspecified; I25.10 Atherosclerotic heart disease of native coronary artery without angina pectoris; E03.9 Hypothyroidism, unspecified; Z86.718 Personal history of other venous thrombosis and embolism
CPT/HCPCS: 81001; 87077; 87086; 87088; 87186; 99283

== ENCOUNTER 2023-09-25 20:10 | Emergency (ER) | payer OTHER, SELFPAY ==
[2021-02-04 10:46] VITALS: BMI 23.0
[2023-09-25 20:12] VITALS: BP 158/58; PULSE 80; RESP 18; TEMP 36.7; O2SAT 961; BMI 22.1
[2023-09-25 22:10] LABS: Mucous, Urine 0 SEEN /hpf (<or=2+); Squamous Epithelial Cells - UA 0 SEEN /hpf (0-5)
--- NOTE | 2023-09-25 22:11 | EX.ED.GUMALE ---
HPI History of Present Illness Chief Complaint: Complaint Narrative Narrative: 78-year-old male past medical history of ureteral scarring, had bladder surgery at [facility] during the summer, few months ago. He states they remove the large stone from his bladder. He presents with decreased urination and urinary retention since this morning. He relates history that he was recently released from [facility] from a hospital stay on Thursday of last week. Before then, he was told by his facility coordinator that his urine looked a little dirty. He states that he does not tolerate amoxicillin because it causes constipation, so he states that the facility coordinator did not write him an antibiotic. He denies any fevers or chills, no nausea or vomiting, but states since 10 AM, almost 12 hours ago, he has been having difficulty urinating. He would go small amounts, then later on in the day nothing at all would come out. [facility] Medical History Arthritis Bladder stones BPH (benign prostatic hyperplasia) Cancer Cardiology follow-up encounter Coronary arteriosclerosis DVT (deep venous thrombosis) Former smoker Gastric reflux History of atrial fibrillation History of echocardiogram History of edema History of pain when walking History of stress test Hx of radiation therapy Hypertension Hypothyroidism Injury of back Injury of head and neck Kidney stones Leg cramps Loss of hearing Low iron Normal colonoscopy Papillary thyroid carcinoma Peripheral neuropathy Prostate cancer Prostate disease PTSD (post-traumatic stress disorder) 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 Wears dentures Wears glasses Wears partial dentures Home Medications Ascorbic Acid [Vitamin C] 500 mg PO DAILY 02/04/21 [History Last Taken Unknown] acetaminophen 325 mg tablet 325 mg PO TID 02/04/21 [History Last Taken Unknown] apixaban 5 mg tablet 5 mg PO BID 02/04/21 [History Last Taken 04/12/22] aspirin 81 mg tablet,delayed release 81 mg PO DAILY 02/04/21 [History Last Taken 04/12/22] atenolol 25 mg tablet 25 mg PO QHS 02/04/21 [History Last Taken Unknown] atorvastatin 20 mg tablet 20 mg PO QHS 02/04/21 [History Last Taken Unknown] bisacodyl 5 mg tablet 10 mg PO QHS 02/04/21 [History Last Taken Unknown] calcium carbonate 600 mg calcium (1,500 mg) tablet 650 mg PO BID 02/04/21 [History Last Taken Unknown] cholecalciferol (vitamin D3) 50 mcg (2,000 unit) capsule 2,000 unit PO DAILY 02/04/21 [History Last Taken Unknown] cyanocobalamin (vitamin B-12) 100 mcg tablet 100 mcg PO DAILY 02/04/21 [History Last Taken Unknown] docusate sodium 100 mg capsule 200 mg PO QHS 02/04/21 [History Last Taken Unknown] ferrous sulfate 325 mg (65 mg iron) tablet 325 mg PO BID 02/04/21 [History Last Taken Unknown] folic acid 1 mg tablet 1 mg PO DAILY 02/04/21 [History Last Taken Unknown] levothyroxine 150 mcg tablet 150 mcg PO MOTUWETHFRSA 02/04/21 [History Last Taken 04/15/22 06:30] losartan 100 mg tablet 100 mg PO DAILY 02/04/21 [History Last Taken Unknown] omeprazole 20 mg capsule,delayed release 20 mg PO BID 02/04/21 [History Last Taken Unknown] potassium citrate 10 mEq (1,080 mg) tablet,extended release 10 meq PO 4X/DAY 02/04/21 [History Last Taken Unknown] tamsulosin 0.4 mg capsule 0.8 mg PO QHS 02/04/21 [History Last Taken Unknown] zolpidem 10 mg tablet 10 mg PO QHS 02/04/21 [History Last Taken Unknown] pregabalin 100 mg capsule 100 mg PO QHS 04/11/22 [History Last Taken Unknown] sucralfate 1 gram tablet (Carafate) 1 g PO BID #180 tabs 04/15/22 [Rx Last Taken Unknown] ciprofloxacin HCl 500 mg tablet 500 mg PO BID #10 TABLETS 08/11/23 [Rx Last Taken Unknown] ciprofloxacin HCl 500 mg tablet (Cipro) 500 mg PO BID #14 tabs 09/25/23 [Rx Last Taken Unknown] Allergy/AdvReac Type Severity Reaction Status Date / Time No Known Allergies Allergy Verified 09/25/23 20:14 Family History Mother Breast cancer remission for 20 years, returned and passed within a few weeks Father Prostate cancer, Onset Age: 81 passed in March 2007 Brother Alcoholism Grandmother Pancreatic cancer paternal CVA (cerebral vascular accident) maternal Surgical History History of bilateral knee replacement History of cardiac catheterization History of cataract removal with insertion of prosthetic lens History of foot surgery History of heart artery stent History of hernia repair History of oral surgery History of thyroidectomy Social History Smoking Status: Former smoker ROS ROS ED ROS Narrative Constitutional: No fever, no chills. HEENT: No sore throat. No neck pain. No loss of vision. No rhinorrhea. Cardiovascular: No chest pain. No palpitations. No pedal edema. Respiratory: No cough, no shortness of breath. Abdominal: No abdominal pain. No nausea. No vomiting. Genitourinary: Positive dysuria. No hematuria. Decreased urination/urinary retention. Musculoskeletal: No myalgias. No arthralgias. Neurologic: No headaches. No dizziness. No lightheadedness. Skin: No rash. No change in color. Psychiatric: No depression. No anxiety. EXAM Physical Exam Narrative Exam Narrative: Afebrile. Vital signs noted. HEENT: Normocephalic. Atraumatic. PERRL, EOMI. Neck soft and supple. No point tenderness or step off. Cardiovascular: Regular rate and rhythm. No murmurs, rubs, or gallops appreciated. Respiratory: No tachypnea. Lungs clear to auscultation bilaterally. Gastrointestinal: Abdomen soft, nontender, with normoactive bowel sounds. No rebound or guarding. Mathis catheter had already been placed per nursing protocol. Neurological: Awake. Alert. Nonfocal, nonlateralizing. Skin: No rash. Normal color. No pallor. Musculoskeletal: No pedal edema. Full range of motion extremities. Const Vital Signs: 09/25/23 20:12 Temperature 98.1 F Temperature Source Temporal Pulse Rate 80 Respiratory Rate 18 Blood Pressure 158/58 H Blood Pressure Mean 91 Pulse Ox 961 Oxygen Delivery Method Room Air MDM MDM MDM Narrative Medical decision making narrative: Concern is for urinary retention versus symptoms of UTI. As the patient was having symptoms of urinary retention, RN placed Mathis catheter per protocol. He now has approximately 400 mL of yellow to dark urine in his Mathis bag. His abdomen is soft currently. Urinalysis will be obtained along with urine culture. I will prescribe him antibiotics, and he states that he usually takes Cipro because this is the third or fourth UTI that has had since his surgery. I discussed with the patient his ureteral strictures, and the need for leaving the Mathis catheter in place because of his symptoms of urinary retention. I reviewed his urinalysis and there are 10-25 RBCs with 10-25 WBCs with 0 squamous epithelial cells and 1+ bacteria. This was sent for culture as this is a complicated UTI. He states Cipro worked for him in the past. He was given his first dose here, and a prescription written for the next 7 days. He was warned of the risk of tendon rupture and acknowledges an understanding. Additionally, he was given a Mathis leg bag. He will follow-up with his urologist in [place] within 1 week for voiding trial and Mathis catheter removal. I feel he can be discharged safely home with follow-up, and that he does not require observation or admission at this time. Return instructions to the emergency department were reviewed. Disposition is discharged home in stable condition. History & Record Review Discussion w/independent historian: Patient Additional record(s) reviewed:: Prior ED visit Lab Data Attestation: I reviewed the patient's lab results. Labs: Laboratory Results - last 24 hr 09/25/23 22:09 Urine Color Yellow Urine Clarity Cloudy Urine pH 7.0 Ur Specific [place] 1.015 Urine Protein 100 H Urine Glucose (UA) Normal Urine Ketones Negative Urine Occult Blood 250 H Urine Nitrite Negative Urine Bilirubin Negative Urine Urobilinogen Normal Ur Leukocyte Esterase 100 H Urine RBC 10-25 SEEN Urine WBC 10-25 SEEN Ur Squamous Epith Cells 0 SEEN Urine Bacteria 1+ Urine Mucus 0 SEEN Discharge Plan Triage Chief Complaint: Complaint ED Provider: Prince Lassiter Dx/Rx/DC Orders Clinical Impression: Complicated UTI (urinary tract infection), Urinary retention Instructions: ED Mathis Catheter, Care, ED Urinary Retention, Male, ED Urinary Tract Infections in Men Prescriptions: New ciprofloxacin HCl [Cipro] 500 mg tablet 500 mg PO BID Qty: 14 0RF No Action Ascorbic Acid [Vitamin C] 500 MG tablet 500 mg PO DAILY acetaminophen 325 MG tablet 325 mg PO TID atorvastatin 20 MG tablet 20 mg PO QHS cyanocobalamin (vitamin B-12) 100 MCG tablet 100 mcg PO DAILY atenolol 25 MG tablet 25 mg PO QHS aspirin 81 MG tablet,delayed release (DR/EC) 81 mg PO DAILY calcium carbonate 600 MG tablet 650 mg PO BID tamsulosin 0.4 MG capsule 0.8 mg PO QHS ferrous sulfate 325 MG tablet 325 mg PO BID levothyroxine 150 MCG tablet 150 mcg PO MOTUWETHFRSA Rx Instructions: takes 1/2 tab on Sundays docusate sodium 100 MG capsule 200 mg PO QHS omeprazole 20 MG capsule 20 mg PO BID folic acid 1 MG tablet 1 mg PO DAILY zolpidem 10 MG tablet 10 mg PO QHS losartan 100 MG tablet 100 mg PO DAILY bisacodyl 5 MG tablet 10 mg PO QHS cholecalciferol (vitamin D3) 2,000 UNIT capsule 2,000 unit PO DAILY apixaban 5 MG tablet 5 mg PO BID potassium citrate 10 MEQ tablet extended release 10 meq PO 4X/DAY pregabalin 100 mg Capsule 100 mg PO QHS sucralfate [Carafate] 1 gram tablet 1 g PO BID Qty: 180 2RF ciprofloxacin HCl [ciprofloxacin HCl] 500 mg tablet 500 mg PO BID Qty: 10 0RF [facility] [Primary Care Provider] - Activity Restrictions/Additional Instructions: Follow-up with your urologist in [place] next week. Disposition Disposition: Home, Self Care
[2023-09-25 22:15] LABS: Color, Urine Yellow (Yellow); Glucose, Dipstick Normal (Normal); Ketone-Dipstick Negative (Negative); Leukocyte Esterase-Dipstick 100 /ul (Negative); Nitrite-Dipstick Negative (Negative); Occult Blood-Urine 250 /ul (Negative); Protein-Dipstick 100 mg/dl (Negative); Specific Gravity, Urine 1.015 (1.002-1.030); Urine Bilirubin Dipstick Negative (Negative); Urine Clarity Cloudy (Clear); Urine Urobilinogen Normal (Normal)
[2023-09-25 22:31] LABS: Bacteria 1+ /hpf (None Seen); Red Blood Cells-Urine 10-25 SEEN /hpf (0-5); White Blood Cells 10-25 SEEN /hpf (0-5)
[2023-09-25] MEDS: Ciprofloxacin 500 MG Tablet PO (23:04)
[2023-09-25 23:08] VITALS: PULSE 69; RESP 15; O2SAT 98
== END 2023-09-25 23:23 | disposition home or self-care (01) ==
PROVIDERS: Emergency Provider Emergency Medicine; Visit Provider Emergency Medicine
DX: N39.0 Urinary tract infection, site not specified (principal); I10 Essential (primary) hypertension; I25.10 Atherosclerotic heart disease of native coronary artery without angina pectoris; R33.9 Retention of urine, unspecified; Z87.891 Personal history of nicotine dependence; Z85.46 Personal history of malignant neoplasm of prostate; Z86.718 Personal history of other venous thrombosis and embolism; Z79.01 Long term (current) use of anticoagulants; Z79.82 Long term (current) use of aspirin; Z79.899 Other long term (current) drug therapy; K21.9 Gastro-esophageal reflux disease without esophagitis; N40.0 Benign prostatic hyperplasia without lower urinary tract symptoms; Z96.653 Presence of artificial knee joint, bilateral
CPT/HCPCS: 51702; 81001; 87077; 87086; 87088; 99283

== ENCOUNTER 2023-09-29 13:03 | Emergency (ER) | payer OTHER, SELFPAY ==
[2021-02-04 10:46] VITALS: BMI 23.0
[2023-09-29 13:04] VITALS: BP 142/90; PULSE 73; RESP 16; TEMP 35.5; O2SAT 100; BMI 21.9
--- NOTE | 2023-09-29 14:17 | EX.ED.GUMALE ---
HPI History of Present Illness Chief Complaint: Complaint Informant: patient Narrative Narrative: Patient is a 78-year-old male with history of urinary retention and prior prostate cancer status post radiation treatments presenting with Mathis catheter not draining. Patient states he emptied the bag like normal around 1030 this morning. At 1230 when he checked there is nothing in the bag. He notes that he was leaking urine at his urethra. He feels like he needs to urinate but nothing coming out of his Mathis. He is currently on antibiotics for urinary tract infection. He states he was called recently and they switched the antibiotic. This was all done through our system. He denies any other complaints. States he is otherwise been feeling well. Chart review shows that patient was seen on 09/25 for acute urinary retention. Mathis catheter was placed and 400 cc of dark yellow urine out. Mathis catheter was kept in place. He was initially started on fluoroquinolone for antibiotics but was switched to Keflex 2 days ago after culture came back. [facility] Medical History Arthritis Bladder stones BPH (benign prostatic hyperplasia) Cancer Cardiology follow-up encounter Coronary arteriosclerosis DVT (deep venous thrombosis) Former smoker Gastric reflux History of atrial fibrillation History of echocardiogram History of edema History of pain when walking History of stress test Hx of radiation therapy Hypertension Hypothyroidism Injury of back Injury of head and neck Kidney stones Leg cramps Loss of hearing Low iron Normal colonoscopy Papillary thyroid carcinoma Peripheral neuropathy Prostate cancer Prostate disease PTSD (post-traumatic stress disorder) 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 Wears dentures Wears glasses Wears partial dentures Home Medications Ascorbic Acid [Vitamin C] 500 mg PO DAILY 02/04/21 [History Last Taken Unknown] acetaminophen 325 mg tablet 325 mg PO TID 02/04/21 [History Last Taken Unknown] apixaban 5 mg tablet 5 mg PO BID 02/04/21 [History Last Taken 04/12/22] aspirin 81 mg tablet,delayed release 81 mg PO DAILY 02/04/21 [History Last Taken 04/12/22] atenolol 25 mg tablet 25 mg PO QHS 02/04/21 [History Last Taken Unknown] atorvastatin 20 mg tablet 20 mg PO QHS 02/04/21 [History Last Taken Unknown] bisacodyl 5 mg tablet 10 mg PO QHS 02/04/21 [History Last Taken Unknown] calcium carbonate 600 mg calcium (1,500 mg) tablet 650 mg PO BID 02/04/21 [History Last Taken Unknown] cholecalciferol (vitamin D3) 50 mcg (2,000 unit) capsule 2,000 unit PO DAILY 02/04/21 [History Last Taken Unknown] cyanocobalamin (vitamin B-12) 100 mcg tablet 100 mcg PO DAILY 02/04/21 [History Last Taken Unknown] docusate sodium 100 mg capsule 200 mg PO QHS 02/04/21 [History Last Taken Unknown] ferrous sulfate 325 mg (65 mg iron) tablet 325 mg PO BID 02/04/21 [History Last Taken Unknown] folic acid 1 mg tablet 1 mg PO DAILY 02/04/21 [History Last Taken Unknown] levothyroxine 150 mcg tablet 150 mcg PO MOTUWETHFRSA 02/04/21 [History Last Taken 04/15/22 06:30] losartan 100 mg tablet 100 mg PO DAILY 02/04/21 [History Last Taken Unknown] omeprazole 20 mg capsule,delayed release 20 mg PO BID 02/04/21 [History Last Taken Unknown] potassium citrate 10 mEq (1,080 mg) tablet,extended release 10 meq PO 4X/DAY 02/04/21 [History Last Taken Unknown] tamsulosin 0.4 mg capsule 0.8 mg PO QHS 02/04/21 [History Last Taken Unknown] zolpidem 10 mg tablet 10 mg PO QHS 02/04/21 [History Last Taken Unknown] pregabalin 100 mg capsule 100 mg PO QHS 04/11/22 [History Last Taken Unknown] sucralfate 1 gram tablet (Carafate) 1 g PO BID #180 tabs 04/15/22 [Rx Last Taken Unknown] ciprofloxacin HCl 500 mg tablet 500 mg PO BID #10 TABLETS 08/11/23 [Rx Last Taken Unknown] ciprofloxacin HCl 500 mg tablet (Cipro) 500 mg PO BID #14 tabs 09/25/23 [Rx Last Taken Unknown] cephalexin 500 mg capsule 500 mg PO Q6 #28 CAPSULES 09/28/23 [Rx Last Taken Unknown] Allergy/AdvReac Type Severity Reaction Status Date / Time No Known Allergies Allergy Verified 09/29/23 13:06 Family History Mother Breast cancer remission for 20 years, returned and passed within a few weeks Father Prostate cancer, Onset Age: 81 passed in March 2007 Brother Alcoholism Grandmother Pancreatic cancer paternal CVA (cerebral vascular accident) maternal Surgical History History of bilateral knee replacement History of cardiac catheterization History of cataract removal with insertion of prosthetic lens History of foot surgery History of heart artery stent History of hernia repair History of oral surgery History of thyroidectomy Social History Smoking Status: Former smoker ROS ROS ED Constitutional Constitutional ED: Denies chills or fever(s) Gastrointestinal Gastrointestinal: Denies abdominal pain, nausea or vomiting Genitourinary Genitourinary ED: Reports other Details: Some sediment in his urine. No current hematuria. No drainage from Mathis catheter Musculoskeletal Musculoskeletal: Denies arthralgias or back pain Integumentary Denies rash Hematologic/Lymphatic Hematologic/Lymphatic: Reports easy bleeding EXAM Physical Exam Const Vital Signs: 09/29/23 13:04 09/29/23 15:29 Temperature 96 F L Temperature Source Temporal Pulse Rate 73 Respiratory Rate 16 14 Blood Pressure 142/90 H Blood Pressure Mean 107 Pulse Ox 100 Oxygen Delivery Method Room Air Positive well nourished and well developed General Appearance ED: well developed and NAD HEENT Reports moist mucous membranes Neck supple Resp normal respiratory effort and clear to auscultation bilaterally Cardio regular rate and regular rhythm GI non-tender and non-distended Narrative: Mathis catheter in place. Nursing staff is currently flushing it and it is draining yellow urine. Bleeding or trauma noticed at the penile meatus Extremity normal to inspection Neuro oriented x3 Sensorium / Orientation: alert Motor Exam: Negative for general weakness Psych mental status grossly normal MDM MDM MDM Narrative Medical decision making narrative: Evaluated for Mathis catheter malfunction. At likely was clogged. Nursing staff able to flush it and has approximately 400 cc of urine out. Patient is now asymptomatic. He is already on antibiotics for culture positive UTI. There is no significant sediment/blood draining so I do not think it needs to be exchanged for a larger Mathis catheter. In addition patient was making urine up to earlier today so I do not think we need BMP to check his kidney function as low suspicion for hydronephrosis/MOHINDER secondary to this obstruction. Monitor patient to make sure Mathis catheter continues to drain. re-evaluated. Continues to have clear yellow urine drained to his Mathis bag. Will be discharged home. Discharge Plan Triage Chief Complaint: Complaint ED Provider: Alis Haywood Dx/Rx/DC Orders Clinical Impression: Malfunction of Mathis catheter Instructions: ED Mathis Catheter, Care Prescriptions: No Action Ascorbic Acid [Vitamin C] 500 MG tablet 500 mg PO DAILY acetaminophen 325 MG tablet 325 mg PO TID atorvastatin 20 MG tablet 20 mg PO QHS cyanocobalamin (vitamin B-12) 100 MCG tablet 100 mcg PO DAILY atenolol 25 MG tablet 25 mg PO QHS aspirin 81 MG tablet,delayed release (DR/EC) 81 mg PO DAILY calcium carbonate 600 MG tablet 650 mg PO BID tamsulosin 0.4 MG capsule 0.8 mg PO QHS ferrous sulfate 325 MG tablet 325 mg PO BID levothyroxine 150 MCG tablet 150 mcg PO MOTUWETHFRSA Rx Instructions: takes 1/2 tab on Sundays docusate sodium 100 MG capsule 200 mg PO QHS omeprazole 20 MG capsule 20 mg PO BID folic acid 1 MG tablet 1 mg PO DAILY zolpidem 10 MG tablet 10 mg PO QHS losartan 100 MG tablet 100 mg PO DAILY bisacodyl 5 MG tablet 10 mg PO QHS cholecalciferol (vitamin D3) 2,000 UNIT capsule 2,000 unit PO DAILY apixaban 5 MG tablet 5 mg PO BID potassium citrate 10 MEQ tablet extended release 10 meq PO 4X/DAY pregabalin 100 mg Capsule 100 mg PO QHS sucralfate [Carafate] 1 gram tablet 1 g PO BID Qty: 180 2RF ciprofloxacin HCl [ciprofloxacin HCl] 500 mg tablet 500 mg PO BID Qty: 10 0RF ciprofloxacin HCl [Cipro] 500 mg tablet 500 mg PO BID Qty: 14 0RF cephalexin [cephalexin] 500 mg capsule 500 mg PO Q6 Qty: 28 0RF [facility]Primary [facility] Provider] - Activity Restrictions/Additional Instructions: Please continue to follow-up with your urologist outpatient. Continue the antibiotics you are prescribed (the cephalexin). Return to the ER if you have further issues with your Mathis catheter are/is not draining. Disposition Disposition: Home, Self Care Discharge Date/Time: 09/29/23 15:30
[2023-09-29 15:29] VITALS: RESP 14
== END 2023-09-29 15:30 | disposition home or self-care (01) ==
PROVIDERS: Emergency Provider Emergency Medicine; Visit Provider Emergency Medicine
DX: T83.098A Other mechanical complication of other urinary catheter, initial encounter (principal); I10 Essential (primary) hypertension; I25.10 Atherosclerotic heart disease of native coronary artery without angina pectoris; Z87.891 Personal history of nicotine dependence; Z85.46 Personal history of malignant neoplasm of prostate; Z86.718 Personal history of other venous thrombosis and embolism; Z79.01 Long term (current) use of anticoagulants; Z79.82 Long term (current) use of aspirin; Z79.899 Other long term (current) drug therapy; E03.9 Hypothyroidism, unspecified; K21.9 Gastro-esophageal reflux disease without esophagitis; N40.0 Benign prostatic hyperplasia without lower urinary tract symptoms; Z96.653 Presence of artificial knee joint, bilateral
CPT/HCPCS: 99282

== ENCOUNTER 2023-12-24 15:51 | Inpatient (IN) | payer OTHER, SELFPAY ==
[2021-02-04 10:46] VITALS: BMI 23.0
[2023-12-24] VITALS (8 sets, daily range): BP systolic 120–172; BP diastolic 73–90; PULSE 66–85; RESP 16–20; TEMP 36.3–36.8; O2SAT 97–100; BMI 21.8; BMI 21.4
--- NOTE | 2023-12-24 17:12 | EX.ED.DYSGE1 ---
HPI <GURMEET Araya - Last Filed: 12/24/23 21:48> History of Present Illness Chief Complaint: Complaint Narrative Narrative: 78-year-old male with PMH of prostate cancer, kidney stones, cardiac stents, A-fib on Plavix and Eliquis states 1 week ago he had bilateral flank pain that resolved on its own. Today around noon he started urinating blood and clots and developed abdominal pain. No fever or nausea or vomiting. He states in April 2023 he had a procedure to have a bladder stone removed and his prostate partially resected. He sees a [place] urologist in [place]. [facility] <GURMEET Araya - Last Filed: 12/24/23 21:48> [facility] Medical History (Updated 12/24/23 @ 22:[address] Syeda Levin MD) Arthritis Bladder stones BPH (benign prostatic hyperplasia) CAD (coronary artery disease) Cardiology follow-up encounter DVT (deep venous thrombosis) Former smoker Gastric reflux History of prostate cancer History of thyroid cancer HLD (hyperlipidemia) Hx of radiation therapy Hypertension Hypothyroidism Injury of back Kidney stones Loss of hearing PAF (paroxysmal atrial fibrillation) Peripheral neuropathy PTSD (post-traumatic stress disorder) 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 Wears glasses Wears partial dentures Home Medications Ascorbic Acid [Vitamin C] 500 mg PO DAILY 02/04/21 [History Last Taken Unknown] acetaminophen 325 mg tablet 650 mg PO TID fever or pain 02/04/21 [History Last Taken Unknown] apixaban 5 mg tablet 5 mg PO BID 02/04/21 [History Last Taken 04/12/22] aspirin 81 mg tablet,delayed release 81 mg PO DAILY 02/04/21 [History Last Taken 04/12/22] atenolol 25 mg tablet 25 mg PO QHS HEART 02/04/21 [History Last Taken Unknown] atorvastatin 20 mg tablet 20 mg PO QHS CHOLESTEROL 02/04/21 [History Last Taken Unknown] bisacodyl 5 mg tablet 10 mg PO QHS LAXATIVE 02/04/21 [History Last Taken Unknown] calcium carbonate 600 mg calcium (1,500 mg) tablet 650 mg PO BID 02/04/21 [History Last Taken Unknown] cholecalciferol (vitamin D3) 50 mcg (2,000 unit) capsule 2,000 unit PO DAILY 02/04/21 [History Last Taken Unknown] cyanocobalamin (vitamin B-12) 100 mcg tablet 100 mcg PO DAILY 02/04/21 [History Last Taken Unknown] ferrous sulfate 325 mg (65 mg iron) tablet 325 mg PO BID 02/04/21 [History Last Taken Unknown] folic acid 1 mg tablet 1 mg PO DAILY 02/04/21 [History Last Taken Unknown] levothyroxine 150 mcg tablet 150 mcg PO MOTUWETHFRSA 02/04/21 [History Last Taken 04/15/22 06:30] losartan 100 mg tablet 100 mg PO DAILY 02/04/21 [History Last Taken Unknown] omeprazole 20 mg capsule,delayed release 20 mg PO BID 02/04/21 [History Last Taken Unknown] potassium citrate 10 mEq (1,080 mg) tablet,extended release 10 meq PO 4X/DAY 02/04/21 [History Last Taken Unknown] zolpidem 10 mg tablet 10 mg PO QHS SLEEP 02/04/21 [History Last Taken Unknown] topiramate 200 mg tablet (Topamax) 200 mg PO BID 12/24/23 [History Last Taken Unknown] Allergy/AdvReac Type Severity Reaction Status Date / Time No Known Allergies Allergy Verified 12/24/23 15:52 Family History Mother Breast cancer remission for 20 years, returned and passed within a few weeks Father Prostate cancer, Onset Age: 81 passed in March 2007 Brother Alcoholism Grandmother Pancreatic cancer paternal CVA (cerebral vascular accident) maternal Surgical History (Updated 12/24/23 @ 22:[address] Syeda Levin MD) History of bilateral knee replacement History of cardiac catheterization History of cataract removal with insertion of prosthetic lens History of foot surgery History of heart artery stent History of hernia repair History of oral surgery History of thyroidectomy Social History (Updated 12/24/23 @ 21:[address] Syeda Levin MD) household members: spouse Smoking Status: Former smoker alcohol intake: never substance use type: does not use ROS <GURMEET Araya - Last Filed: 12/24/23 21:48> ROS ED ROS Narrative Constitutional: Negative for fever, chills, malaise. GI: Positive for abdominal pain. Negative for nausea, vomiting. : Positive for hematuria. EXAM <GURMEET Araya - Last Filed: 12/24/23 21:48> Physical Exam Narrative Exam Narrative: CONST: Patient sitting in no acute distress. EYES: Normal inspection. NECK: Normal inspection. RESP: No respiratory distress, CTAB. CVS: Regular rate and rhythm, no murmur, no gallop. ABD: Soft with suprapubic tenderness, no guarding or rebound. Back: Normal inspection, no CVA tenderness. SKIN: Color normal, no rash, warm, dry, intact. EXTREMITIES: Normal appearance, no pedal edema. NEURO: Oriented x4. PSYCH: Normal affect. Const Vital Signs: 12/24/23 15:52 12/24/23 17:46 12/24/23 19:00 Temperature 98.0 F Temperature Source Temporal Pulse Rate 80 72 85 Respiratory Rate 18 19 H 20 H Blood Pressure 141/90 H 153/83 H 128/73 H Blood Pressure Mean 107 106 91 Pulse Ox 100 100 97 Oxygen Delivery Method Room Air Room Air Room Air 12/24/23 15:54 12/24/23 18:54 12/24/23 21:21 Temperature 98 F 97.3 F L Temperature Source Oral Temporal Pulse Rate 80 72 70 Respiratory Rate 18 16 16 Blood Pressure 141/90 H 172/82 H 169/82 H Blood Pressure Mean 107 112 111 Pulse Ox 98 99 99 Oxygen Delivery Method Room Air Room Air Room Air <Dr. Lul Freeman DO - Last Filed: 12/24/23 23:56> Physical Exam Const Vital Signs: 12/24/23 15:52 12/24/23 17:46 12/24/23 19:00 Temperature 98.0 F Temperature Source Temporal Pulse Rate 80 72 85 Respiratory Rate 18 19 H 20 H Blood Pressure 141/90 H 153/83 H 128/73 H Blood Pressure Mean 107 106 91 Pulse Ox 100 100 97 Oxygen Delivery Method Room Air Room Air Room Air 12/24/23 15:54 12/24/23 18:54 12/24/23 21:21 Temperature 98 F 97.3 F L Temperature Source Oral Temporal Pulse Rate 80 72 70 Respiratory Rate 18 16 16 Blood Pressure 141/90 H 172/82 H 169/82 H Blood Pressure Mean 107 112 111 Pulse Ox 98 99 99 Oxygen Delivery Method Room Air Room Air Room Air MDM <GURMEET Araya - Last Filed: 12/24/23 21:48> MDM MDM Narrative Medical decision making narrative: History gathered from: Patient and Differential: Urinary retention, bladder outlet obstruction, kidney stone Consults: Urology, hospitalist Patient had hematuria with clots and then urinary retention since around noon. He is on Plavix and Eliquis for cardiac stents and A-fib, respectively. He appears well and nontoxic. Vital signs stable. Abdomen soft with suprapubic tenderness. Bladder scan shows retention with 375 cc. Nursing staff were unable to place a Mathis secondary to small urethral size. Patient states he has a lot of scar tissue. Labs show normal white count of 9.1, hemoglobin 13.7, BUN 26, creatinine 1.15. CT scan shows bilateral hydroureteronephrosis without evidence of obstructive stone. I consulted Dr. Figueroa who will come in to place a Mathis. Urology did a flexible cystoscopy and placed a 20 Romansh catheter and manually irrigated out significant clots and blood. Patient will be admitted to the hospitalist for observation. Case was discussed with the hospitalist. Lab Data Attestation: I reviewed the patient's lab results. Labs: Laboratory Results - last 24 hr 12/24/23 17:37 WBC 9.1 RBC 4.28 L Hgb 13.7 Hct 43.5 MCV 101.6 H MCH 32.0 MCHC 31.5 L RDW Std Deviation 47.6 H RDW Coeff of Garth 12.7 Plt Count 218 MPV 10.4 Immature Gran % (Auto) 0.400 Neut % (Auto) 75.0 H Lymph % (Auto) 16.4 L [place] % (Auto) 7.2 Eos % (Auto) 0.7 Baso % (Auto) 0.3 Absolute Neuts (auto) 6.9 Absolute Lymphs (auto) 1.50 Nucleated RBC % 0 Sodium 144 Potassium 4.2 Chloride 113 H Carbon Dioxide 23.0 Anion Gap 8 BUN 26 H Creatinine 1.15 Estim Creat Clear Calc 59.60 Est GFR (MDRD) Af Amer 79 Est GFR (MDRD) Non-Af 66 BUN/Creatinine Ratio 22.6 H Glucose 104 Calcium 9.4 Radiography Diagnostic Testing: Clinical Impression(s) from Imaging Studies Abdomen/Pelvis CT 12/24/23 17:51 IMPRESSION: Multiple nonobstructing right renal calculi. Small left renal cyst which will not require additional imaging Moderate bilateral hydroureteronephrosis without evidence for ureteral calculus possibly due to bladder outlet obstruction although cannot definitively exclude bladder wall mass in association with intravesical hemorrhage. Electronically Signed: Tristan Steiner MD at 18:46 EST , <Dr. Lul Freeman, DO - Last Filed: 12/24/23 23:56> [facility] Narrative Medical decision making narrative: History gathered from: Patient and Differential: Urinary retention, bladder outlet obstruction, kidney stone Consults: Urology, hospitalist Patient had hematuria with clots and then urinary retention since around noon. He is on Plavix and Eliquis for cardiac stents and A-fib, respectively. He appears well and nontoxic. Vital signs stable. Abdomen soft with suprapubic tenderness. Bladder scan shows retention with 375 cc. Nursing staff were unable to place a Mathis secondary to small urethral size. Patient states he has a lot of scar tissue. Labs show normal white count of 9.1, hemoglobin 13.7, BUN 26, creatinine 1.15. CT scan shows bilateral hydroureteronephrosis without evidence of obstructive stone. I consulted Dr. Figueroa who will come in to place a Mathis. Urology did a flexible cystoscopy and placed a 20 Romansh catheter and manually irrigated out significant clots and blood. Patient will be admitted to the hospitalist for observation. Case was discussed with the hospitalist. I have personally performed a face to face assessment of the patient and have reviewed the ALEJANDRO Note. I performed a substantive portion of the visit including all aspects of the following. My romero findings include: History is 78-year-old male with difficulty urinating with hematuria and clots. Patient has seen urology at the [place]. I was able to look up his urologist who is a nurse practitioner there. He has a history of prostate cancer. Patient is on blood thinners. Exam is patient appears uncomfortable in the bed. No significantly distended bladder on palpation. Medical Decison Making creatinine normal white count 9.1. CT of the pelvis with bilateral hydronephroureter. There appears to be a large amount of debris in the bladder consistent with blood. Difficult to exclude mass. Nursing unable to place Mathis catheter. Urology was contacted and came to the emergency department placed catheter. Patient will be admitted. History & Record Review Discussion w/independent historian: Patient and Family Lab Data Labs: Laboratory Results - last 24 hr 12/24/23 17:37 WBC 9.1 RBC 4.28 L Hgb 13.7 Hct 43.5 MCV 101.6 H MCH 32.0 MCHC 31.5 L RDW Std Deviation 47.6 H RDW Coeff of Garth 12.7 Plt Count 218 MPV 10.4 Immature Gran % (Auto) 0.400 Neut % (Auto) 75.0 H Lymph % (Auto) 16.4 L [place] % (Auto) 7.2 Eos % (Auto) 0.7 Baso % (Auto) 0.3 Absolute Neuts (auto) 6.9 Absolute Lymphs (auto) 1.50 Nucleated RBC % 0 Sodium 144 Potassium 4.2 Chloride 113 H Carbon Dioxide 23.0 Anion Gap 8 BUN 26 H Creatinine 1.15 Estim Creat Clear Calc 59.60 Est GFR (MDRD) Af Amer 79 Est GFR (MDRD) Non-Af 66 BUN/Creatinine Ratio 22.6 H Glucose 104 Calcium 9.4 Radiography Diagnostic Testing: Clinical Impression(s) from Imaging Studies Abdomen/Pelvis CT 12/24/23 17:51 IMPRESSION: Multiple nonobstructing right renal calculi. Small left renal cyst which will not require additional imaging Moderate bilateral hydroureteronephrosis without evidence for ureteral calculus possibly due to bladder outlet obstruction although cannot definitively exclude bladder wall mass in association with intravesical hemorrhage. Electronically Signed: Tristan Steiner MD at 18:46 EST Reading Location ID and State: [facility] / ID Tel , Service support , Management Discussion w/another healthcare provider: Hospitalist and Manager Cardiology (Urology (Dr. Figueroa)) Discharge Plan Dx/Rx/DC Orders Clinical Impression: Acute urinary retention, Hematuria, Difficult Mathis catheter placement Disposition Disposition: Acute Care Hospital [facility] Discharge Date/Time: 12/24/23 23:16
[2023-12-24] MEDS: Morphine 4 MG/ML Syringe IV ×2 (17:34→19:03)
[2023-12-24] MEDS: 0.9% Normal Saline (1000mL) 1,000 ML 999 ML IV (17:34)
[2023-12-24] MEDS: Ondansetron 4 MG/2 ML Vial IV (17:34)
--- NOTE | 2023-12-24 17:51 | CT_ITS ---
STUDY: CT ABDOMEN AND PELVIS WITHOUT CONTRAST REASON FOR EXAM: Male, 78 years old. hematuria RADIATION DOSAGE (If Supplied By Facility): CTDIvol = ( 8.91 ) mGy, DLP = ( 483.26 ) mGycm TECHNIQUE: Transaxial images were obtained from the dome of the diaphragm to the symphysis pubis without oral contrast, and without intravenous contrast. Sagittal and coronal images were reconstructed. Individualized dose optimization techniques were used for this CT. COMPARISON: None. FINDINGS: The visualized lung bases are unremarkable. Heart size is normal. There is multivessel coronary artery disease. Normal liver. Multiple tiny calcified gallstones without evidence for pericholecystic edema.. Normal spleen. Normal pancreas. Normal bilateral adrenal glands. There are 3 nonobstructing right renal calculi. There is bilateral hydroureteronephrosis without evidence for ureteral calculus to the level of the base of the bladder trigone. Small simple cyst in the left kidney which will not require additional imaging Normal visualized stomach. Normal small intestine. Normal colon. The appendix is visualized and appears normal. Atherosclerotic changes of the aorta without evidence for aneurysm. Normal inferior vena cava. Normal retroperitoneum. There is hemorrhage noted within the bladder which is distended. Cannot exclude coexisting bladder wall mass.. There are radiation seeds noted within the bed of the prostate which does not appear to be significantly enlarged. Normal abdominal wall. Lumbar spine demonstrates degenerative changes CT/Abdomen/Pelvis without Cont IMPRESSION: Multiple nonobstructing right renal calculi. Small left renal cyst which will not require additional imaging Moderate bilateral hydroureteronephrosis without evidence for ureteral calculus possibly due to bladder outlet obstruction although cannot definitively exclude bladder wall mass in association with intravesical hemorrhage. Electronically Signed: Tristan Steiner MD at 18:46 EST ,
[2023-12-24 17:52] LABS: Absolute Neutrophil Count 6.9 X10^3/uL (2.0-7.7); Basophil# 0.03 X10^3/uL; Basophil% 0.3 % (0-1); Eosinophil# 0.06 X10^3/uL; Eosinophils% 0.7 % (0-5); Hematocrit 43.5 % (40-54); Hemoglobin 13.7 g/dL (13.0-16.5); Lymphocyte % 16.4 % (19-41); Mean Corp Hgb Conc 31.5 g/dL (32-36); Mean Corpuscular Volume 101.6 fL (80-94); Mean Platelet Vol. 10.4 fl (6.2-12.0); Monocyte# 0.66 X10^3/uL; Monocyte% 7.2 % (0-10); NRBC Flagged by Analyzer 0 % (0-5); Neutrophil # 6.85 X10^3/uL (2.7-7.7); Platelet Count 218 K/mm3 (150-450); RBC Distribution Width CV 12.7 % (11.6-14.6); RBC Distribution Width SD 47.6 fl (35.1-43.9); Red Blood Count 4.28 M/mm3 (4.6-6.2); White Blood Count 9.1 K/mm3 (4.4-11.0)
[2023-12-24 18:04] LABS: Anion Gap 8 (5-15); BUN 26 mg/dL (7-18); BUN/Creat Ratio 22.6 RATIO (10-20); Calcium,Total 9.4 mg/dL (8.5-10.1); Chloride 113 mmol/L (98-107); Creatinine, Serum 1.15 mg/dL (0.70-1.30); EST Glomerular Filtration Rate 66 mL/min (>60); Est Glom Filt Rate - Afr Amer 79 mL/min (>60); Glucose 104 mg/dL (74-106); Potassium 4.2 mmol/L (3.5-5.1); Sodium Level 144 mmol/L (136-145)
--- NOTE | 2023-12-24 21:34 | CON.PCM.UR_ITS ---
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 He has a history of prostate cancer was treated by radiation therapy here at [facility] by the radiation department. He relates having several difficulties with having catheter was placed in the past. He presented with gross hematuria after recently seeing cardiology today. He has a significant heart history with atrial fibrillation and recent heart stents and is taking Plavix and Apixaban for his heart. At the bedside I did a flexible cystoscopy was able to navigate a Glidewire into the prostate Antoni stricture prostate dense prostatic stricture and then was able to dilate the stricture with serial sounds and then over the dilators I placed a 20 Uzbek catheter into the bladder I then manually irrigated out a significant amount of clots out of the bladder and then put the catheter to drainage. Appears like he is going to be admitted to the hospital for observation the nurses can irrigate the catheter every 2 hours with 50 cc of normal saline I will write the orders. No but he is to change or manipulate the Mathis catheter as it was a very difficult Mathis placement. [facility] Medical History Arthritis Bladder stones BPH (benign prostatic hyperplasia) Cancer Cardiology follow-up encounter Coronary arteriosclerosis DVT (deep venous thrombosis) Former smoker Gastric reflux History of atrial fibrillation History of echocardiogram History of edema History of pain when walking History of stress test Hx of radiation therapy Hypertension Hypothyroidism Injury of back Injury of head and neck Kidney stones Leg cramps Loss of hearing Low iron Normal colonoscopy Papillary thyroid carcinoma Peripheral neuropathy Prostate cancer Prostate disease PTSD (post-traumatic stress disorder) 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 Wears dentures Wears glasses Wears partial dentures Home Medications Ascorbic Acid [Vitamin C] 500 mg PO DAILY 02/04/21 [History Last Taken Unknown] acetaminophen 325 mg tablet 325 mg PO TID 02/04/21 [History Last Taken Unknown] apixaban 5 mg tablet 5 mg PO BID 02/04/21 [History Last Taken 04/12/22] aspirin 81 mg tablet,delayed release 81 mg PO DAILY 02/04/21 [History Last Taken 04/12/22] atenolol 25 mg tablet 25 mg PO QHS 02/04/21 [History Last Taken Unknown] atorvastatin 20 mg tablet 20 mg PO QHS 02/04/21 [History Last Taken Unknown] bisacodyl 5 mg tablet 10 mg PO QHS 02/04/21 [History Last Taken Unknown] calcium carbonate 600 mg calcium (1,500 mg) tablet 650 mg PO BID 02/04/21 [History Last Taken Unknown] cholecalciferol (vitamin D3) 50 mcg (2,000 unit) capsule 2,000 unit PO DAILY 02/04/21 [History Last Taken Unknown] cyanocobalamin (vitamin B-12) 100 mcg tablet 100 mcg PO DAILY 02/04/21 [History Last Taken Unknown] docusate sodium 100 mg capsule 200 mg PO QHS 02/04/21 [History Last Taken Unknown] ferrous sulfate 325 mg (65 mg iron) tablet 325 mg PO BID 02/04/21 [History Last Taken Unknown] folic acid 1 mg tablet 1 mg PO DAILY 02/04/21 [History Last Taken Unknown] levothyroxine 150 mcg tablet 150 mcg PO MOTUWETHFRSA 02/04/21 [History Last Taken 04/15/22 06:30] losartan 100 mg tablet 100 mg PO DAILY 02/04/21 [History Last Taken Unknown] omeprazole 20 mg capsule,delayed release 20 mg PO BID 02/04/21 [History Last Taken Unknown] potassium citrate 10 mEq (1,080 mg) tablet,extended release 10 meq PO 4X/DAY 02/04/21 [History Last Taken Unknown] tamsulosin 0.4 mg capsule 0.8 mg PO QHS 02/04/21 [History Last Taken Unknown] zolpidem 10 mg tablet 10 mg PO QHS 02/04/21 [History Last Taken Unknown] pregabalin 100 mg capsule 100 mg PO QHS 04/11/22 [History Last Taken Unknown] sucralfate 1 gram tablet (Carafate) 1 g PO BID #180 tabs 04/15/22 [Rx Last Taken Unknown] ciprofloxacin HCl 500 mg tablet 500 mg PO BID #10 TABLETS 08/11/23 [Rx Last Taken Unknown] ciprofloxacin HCl 500 mg tablet (Cipro) 500 mg PO BID #14 tabs 09/25/23 [Rx Last Taken Unknown] cephalexin 500 mg capsule 500 mg PO Q6 #28 CAPSULES 09/28/23 [Rx Last Taken Unknown] Allergy/AdvReac Type Severity Reaction Status Date / Time No Known Allergies Allergy Verified 12/24/23 15:52 Family History Mother Breast cancer remission for 20 years, returned and passed within a few weeks Father Prostate cancer, Onset Age: 81 passed in March 2007 Brother Alcoholism Grandmother Pancreatic cancer paternal CVA (cerebral vascular accident) maternal Surgical History History of bilateral knee replacement History of cardiac catheterization History of cataract removal with insertion of prosthetic lens History of foot surgery History of heart artery stent History of hernia repair History of oral surgery History of thyroidectomy Social History Smoking Status: Former smoker Physical Exam Const alert and oriented x3 General Appearance: cooperative HEENT normocephalic, head/scalp atraumatic, EAC's normal and TM's normal bilaterally Eyes PERRL and EOMs intact bilaterally Pupil: sluggish Neck no lymphadenopathy, supple and no JVD General: trachea midline Lymph Lymphatic: no lymphadenopathy noted, lymphedema and lymphadenopathy Resp normal respiratory effort, normal air movement and clear to auscultation bilaterally Cardio regular rate, regular rhythm and peripheral pulses 2+ throughout GI soft to palpation, non-tender and non-distended Extremity normal capillary refill and no clubbing, cyanosis or edema General Extremity: no tenderness to palpation of joints or extremities Skin no rashes or lesions noted General Skin Exam: turgor normal Lesions: no lesions Rashes: no rashes Neuro CN's II-XII intact bilaterally Speech: speech normal Motor Exam: strength 5/5 throughout; Negative for general weakness Psych thought process normal, cooperative and affect normal Appearance: appropriate Lab / Micro Data 12/24/23 17:37 12/24/23 17:37 Labs: Laboratory Results - last 24 hr 12/24/23 17:37: WBC 9.1, RBC 4.28 L, Hgb 13.7, Hct 43.5, MCV 101.6 H, MCH 32.0, MCHC 31.5 L, RDW Std Deviation 47.6 H, RDW Coeff of Garth 12.7, Plt Count 218, MPV 10.4, Immature Gran % (Auto) 0.400, Neut % (Auto) 75.0 H, Lymph % (Auto) 16.4 L, [place] % (Auto) 7.2, Eos % (Auto) 0.7, Baso % (Auto) 0.3, Absolute Neuts (auto) 6.9, Absolute Lymphs (auto) 1.50, Nucleated RBC % 0, Sodium 144, Potassium 4.2, Chloride 113 H, Carbon Dioxide 23.0, Anion Gap 8, BUN 26 H, Creatinine 1.15, Estim Creat Clear Calc 59.60, Est GFR (MDRD) Af Amer 79, Est GFR (MDRD) Non-Af 66, BUN/Creatinine Ratio 22.6 H, Glucose 104, Calcium 9.4 Imaging Radiology Impression Abdomen/Pelvis CT 12/24/23 17:51 IMPRESSION: Multiple nonobstructing right renal calculi. Small left renal cyst which will not require additional imaging Moderate bilateral hydroureteronephrosis without evidence for ureteral calculus possibly due to bladder outlet obstruction although cannot definitively exclude bladder wall mass in association with intravesical hemorrhage. Electronically Signed: Tristan Steiner MD at 18:46 EST ,
--- NOTE | 2023-12-24 21:38 | PCM.OPRPT ---
Report of Operation Date of Procedure: 12/24/23 Pre-Operative Diagnosis: Dense prostatic stricture of the urethra gross hematuria bleeding hemorrhagic cystitis history of radiation therapy Post-Operative Diagnosis: The same Surgery/Procedure Performed:: Flexible cystoscopy, evacuation of blood clots, placement of a catheter complicated Description of Surgical Findings:: Patient was supine on the exam table penis testicles were prepped and draped in usual fashion went in the to the urethra with a flexible 18 Luxembourger Olympus cystoscope was able to get through the urethra and then got to the prostatic urethra a lot of heavy bleeding very difficult to see I probed the area with a Glidewire and then was very fortunate to get a wire through the stricture and into the bladder and then coiled. Then over this wire I dilated the stricture with serial urethral dilators using the Bard ureteral urethral kit from 12 Luxembourger to 16 Luxembourger and 18 Luxembourger. Then after this attempted to place a 20 Luxembourger catheter [place] tip but was not able to then I tried a 16 Luxembourger spokane tip I was able to get this then but then when I got this and we noticed the balloon on the catheter was ruptured so then a put Super Stiff wire through that catheter back that out and then over the Super Stiff wire I then I was able to get a 20 Luxembourger spokane tip catheter into the bladder I then placed 10 cc in the balloon and then irrigated out the bladder continuously and got all the clots until it was a light de paz color. And then we secured the catheter and left to gravity drainage to leave the catheter in place. Surgeon: Martin Figueroa Type of Anesthesia: General Drains: 20fr parker Admit VTE Documentation VTE Present on Admission: No VTE Mechan Device Prophylaxis: SCD's VTE Pharm Prophylaxis ordered?: No
--- NOTE | 2023-12-24 21:42 | PCM.HP.STD ---
HPI - General General Date of Admission: 12/24/23 Date of Service: 12/24/23 Chief Complaint: Urinary retention, Hematuria/clots prior to retention, abdominal pain HPI Narrative The patient is a 78 y/o M w/ PMHx: PAF, GERD, Hx VTE (DVT), BPH, OA, Hypothyroidism, Hx Papillary thyroid carcinoma s/p thyroidectomy with resulting hypothyroidism, Former tobacco use, Hx Prostate CA treated with course radiation therapy, CAD [facility] maintained on eliquis and plavix following who presents to the [facility] ED on 12/24/23 secondary to onset of hematuria with notable clots with some lower suprapubic discomfort with no fever, chills, nausea or emesis however he then had following this persistent urinary retention all starting at approximately noon on day of presentation and not resolving with worsening discomfort prompting eventual ED evaluation. Given urinary retention ED consulted urology with flexible cystoscopy performed with Glidewire into the prostate with noted a significant stricture with dilation and eventual placement of a 20 [place] catheter with manual irrigation performed. Workup in the ED included T98, heart rate 80, BP 141/90, respiratory rate 18, 100% on room air, CBC with WBC of 9.1, human 13.7, MCV 101.6, platelet 218 without marked shift, BMP with chloride 113, BUN/creatinine 26/1.15, urinalysis with specific remedy 1.010, protein 500, ketone 5, occult blood 250, negative nitrite, negative leukocyte Estrace with greater than 100 urine RBCs with no urine WBCs noted with 1+ bacteria reported, urine culture pending per ED but no obvious evidence of UTI at this time, CT abdomen pelvis with multiple nonobstructing right renal calculi, small left renal cyst, moderate bilateral hydroureteronephrosis without any evidence of for ureteral calculus possibly due to the bladder outlet obstruction although cannot definitively exclude bladder wall mass in association with intravesical hemorrhage. In the ED patient ministered Zofran 4 mg IV x 1 as well as morphine 4 mg IV x 2 and 1 L normal saline bolus. [facility] Medical History (Updated 12/24/23 @ 22:[address] Syeda Levin MD) Arthritis Bladder stones BPH (benign prostatic hyperplasia) CAD (coronary artery disease) Cardiology follow-up encounter DVT (deep venous thrombosis) Former smoker Gastric reflux History of prostate cancer History of thyroid cancer HLD (hyperlipidemia) Hx of radiation therapy Hypertension Hypothyroidism Injury of back Kidney stones Loss of hearing PAF (paroxysmal atrial fibrillation) Peripheral neuropathy PTSD (post-traumatic stress disorder) 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 Wears glasses Wears partial dentures Home Medications Ascorbic Acid [Vitamin C] 500 mg PO DAILY 02/04/21 [History Last Taken Unknown] acetaminophen 325 mg tablet 650 mg PO TID fever or pain 02/04/21 [History Last Taken Unknown] apixaban 5 mg tablet 5 mg PO BID 02/04/21 [History Last Taken 04/12/22] aspirin 81 mg tablet,delayed release 81 mg PO DAILY 02/04/21 [History Last Taken 04/12/22] atenolol 25 mg tablet 25 mg PO QHS HEART 02/04/21 [History Last Taken Unknown] atorvastatin 20 mg tablet 20 mg PO QHS CHOLESTEROL 02/04/21 [History Last Taken Unknown] bisacodyl 5 mg tablet 10 mg PO QHS LAXATIVE 02/04/21 [History Last Taken Unknown] calcium carbonate 600 mg calcium (1,500 mg) tablet 650 mg PO BID 02/04/21 [History Last Taken Unknown] cholecalciferol (vitamin D3) 50 mcg (2,000 unit) capsule 2,000 unit PO DAILY 02/04/21 [History Last Taken Unknown] cyanocobalamin (vitamin B-12) 100 mcg tablet 100 mcg PO DAILY 02/04/21 [History Last Taken Unknown] ferrous sulfate 325 mg (65 mg iron) tablet 325 mg PO BID 02/04/21 [History Last Taken Unknown] folic acid 1 mg tablet 1 mg PO DAILY 02/04/21 [History Last Taken Unknown] levothyroxine 150 mcg tablet 150 mcg PO MOTUWETHFRSA 02/04/21 [History Last Taken 04/15/22 06:30] losartan 100 mg tablet 100 mg PO DAILY 02/04/21 [History Last Taken Unknown] omeprazole 20 mg capsule,delayed release 20 mg PO BID 02/04/21 [History Last Taken Unknown] potassium citrate 10 mEq (1,080 mg) tablet,extended release 10 meq PO 4X/DAY 02/04/21 [History Last Taken Unknown] zolpidem 10 mg tablet 10 mg PO QHS SLEEP 02/04/21 [History Last Taken Unknown] topiramate 200 mg tablet (Topamax) 200 mg PO BID 12/24/23 [History Last Taken Unknown] Allergy/AdvReac Type Severity Reaction Status Date / Time No Known Allergies Allergy Verified 12/24/23 15:52 Family History Mother Breast cancer remission for 20 years, returned and passed within a few weeks Father Prostate cancer, Onset Age: 81 passed in March 2007 Brother Alcoholism Grandmother Pancreatic cancer paternal CVA (cerebral vascular accident) maternal Surgical History (Updated 12/24/23 @ 22:[address] Syeda Levin MD) History of bilateral knee replacement History of cardiac catheterization History of cataract removal with insertion of prosthetic lens History of foot surgery History of heart artery stent History of hernia repair History of oral surgery History of thyroidectomy Social History (Updated 12/24/23 @ 21:[address] Syeda Levin MD) household members: spouse Smoking Status: Former smoker alcohol intake: never substance use type: does not use ROS ROS Narrative Admission Review of Systems: CONSTITUTIONAL: No weight loss, fever, chills, + weakness or fatigue. HEENT: Eyes: No visual loss, blurred vision, double vision or yellow sclerae. Ears, Nose, Throat: No hearing loss, sneezing, congestion, runny nose or sore throat. SKIN: No rash or itching, lesions, wounds. CARDIOVASCULAR: No chest pain, chest pressure or chest discomfort, palpitations, edema, orthopnea, syncopal events. RESPIRATORY: No shortness of breath, cough or sputum, wheezing, hemoptysis. GASTROINTESTINAL: + Anorexia, nausea without vomiting, abdominal pain (lower). No diarrhea, melena, BRBPR. GENITOURINARY: + Hematuria, clots, urinary retention, suprapubic pain. NEUROLOGICAL: No headache, dizziness, syncope, paralysis, ataxia, numbness or tingling in the extremities, focal weakness, change in bowel or bladder control, seizure. MUSCULOSKELETAL: + muscle, back pain, joint pain or stiffness. HEMATOLOGIC: + anemia, easy bruising, active bleeding is noted with hematuria. LYMPHATICS: No enlarged nodes. No history of splenectomy. PSYCHIATRIC: No history of depression or anxiety. ENDOCRINOLOGIC: No reports of sweating, cold or heat intolerance. No polyuria or polydipsia. ALLERGIES: No history of asthma, hives, eczema or rhinitis. Vital Signs Vital Signs Vital Signs: 12/24/23 15:52 12/24/23 17:46 12/24/23 19:00 Temperature 98.0 F Temperature Source Temporal Pulse Rate 80 72 85 Respiratory Rate 18 19 H 20 H Blood Pressure 141/90 H 153/83 H 128/73 H Blood Pressure Mean 107 106 91 Pulse Ox 100 100 97 Oxygen Delivery Method Room Air Room Air Room Air 12/24/23 15:54 12/24/23 18:54 12/24/23 21:21 Temperature 98 F 97.3 F L Temperature Source Oral Temporal Pulse Rate 80 72 70 Respiratory Rate 18 16 16 Blood Pressure 141/90 H 172/82 H 169/82 H Blood Pressure Mean 107 112 111 Pulse Ox 98 99 99 Oxygen Delivery Method Room Air Room Air Room Air Weight Weight: 170 lb Body Mass Index (BMI) 21.8 Physical Exam Narrative Physical Examination: General: Awake, alert, oriented x 3 and cooperative, seated upright in the ED bed, fatigued, notes discomfort improved with Mathis placement Skin: Normal color, normal turgor, no icterus, no cyanosis except various staged ecchymoses. HEENT: AT/NC, EOMI, PERRLA, moderately dry MM, no carotid bruits or JVD noted. Lungs: Mildly diminished, greater bases, appropriate effort, no rales, ronchi or wheezing. Heart: Regular rate and rhythm; no gallop, rub audible. Abdomen: Soft, still some mild suprapubic discomfort with palpation but he notes improved otherwise nontender abdomen, no obvious distention, mildly hyperactive BS, no appreciated HSM. Extremities: No cyanosis, no clubbing, no marked peripheral edema noted. Neurological: Patient awake, alert, oriented as noted, cognitive function intact; pupils equally reactive to light and accommodation, cranial nerves II-XII grossly normal, moving all 4 extremities, no focal deficits, strength improving but given catheter and recent interventions remains moderately globally decreased. Psychiatric: Affect appears fatigued, notes discomfort is improving, no acute evidence of depressive or anxiety feelings. Results Lab / Micro Data 12/24/23 17:37 12/24/23 17:37 Labs: Laboratory Results - last 24 hr 12/24/23 17:37: WBC 9.1, RBC 4.28 L, Hgb 13.7, Hct 43.5, MCV 101.6 H, MCH 32.0, MCHC 31.5 L, RDW Std Deviation 47.6 H, RDW Coeff of Garth 12.7, Plt Count 218, MPV 10.4, Immature Gran % (Auto) 0.400, Neut % (Auto) 75.0 H, Lymph % (Auto) 16.4 L, [place] % (Auto) 7.2, Eos % (Auto) 0.7, Baso % (Auto) 0.3, Absolute Neuts (auto) 6.9, Absolute Lymphs (auto) 1.50, Nucleated RBC % 0, Sodium 144, Potassium 4.2, Chloride 113 H, Carbon Dioxide 23.0, Anion Gap 8, BUN 26 H, Creatinine 1.15, Estim Creat Clear Calc 59.60, Est GFR (MDRD) Af Amer 79, Est GFR (MDRD) Non-Af 66, BUN/Creatinine Ratio 22.6 H, Glucose 104, Calcium 9.4 Imaging Radiology Impression Abdomen/Pelvis CT 12/24/23 17:51 IMPRESSION: Multiple nonobstructing right renal calculi. Small left renal cyst which will not require additional imaging Moderate bilateral hydroureteronephrosis without evidence for ureteral calculus possibly due to bladder outlet obstruction although cannot definitively exclude bladder wall mass in association with intravesical hemorrhage. Electronically Signed: Tristan Steiner MD at 18:46 EST Reading Location ID and State: [facility] / [place] Tel , Service support , Assessment & Plan Assessment/Plan (1) Acute urinary retention: (2) Hematuria: PLAN: Plan The patient is a 78 y/o M w/ PMHx: PAF, GERD, Hx VTE (DVT), BPH, OA, Hypothyroidism, Hx Papillary thyroid carcinoma s/p thyroidectomy with resulting hypothyroidism, Former tobacco use, Hx Prostate CA treated with course radiation therapy, CAD [facility] maintained on eliquis and plavix following who presents to the [facility] ED on 12/24/23 secondary to onset of hematuria with notable clots with some lower suprapubic discomfort with no fever, chills, nausea or emesis however he then had following this persistent urinary retention all starting at approximately noon on day of presentation and not resolving with worsening discomfort prompting eventual ED evaluation. #1. Acute Hematuria with associated Acute Urinary Retention w/ moderate bilateral hydroureteronephrosis without any evidence of for ureteral calculus possibly due to the bladder outlet obstruction: Will admit to medical surgical floor, will continue Mathis catheter with manual irrigation per urology direction, continue urology consultation, will cycle H&H's, will continue aspirin and Plavix given recent PCI 09/2023 cautiously but will hold patient oral NOAC but once urology is satisfied with then resume NOAC and Plavix which patient had been on following his recent cardiac intervention, will have as needed antiemetic and pain regimen. #2. CAD: s/p PCI most recently at the [facility] 09/2023, maintained on eliquis and plavix following, given acute presentation with significant hematuria we will hold NOAC and in the interim will transition to dual antiplatelet therapy with aspirin and Plavix given recent nature of the procedure, continue atenolol, losartan, statin therapy. #3. Hx Papillary thyroid carcinoma s/p thyroidectomy with resulting hypothyroidism: We will continue patient home levothyroxine regimen. #4. PAF: We will continue patient home atenolol, holding Eliquis as noted. #5. Chronic anemia/iron deficiency anemia: Admission hemoglobin 13.7, MCV 101.6, unclear exact hemoglobin baseline but reported chart history, continue iron supplementation. #6. Hypertension: Continue home regimen including atenolol, losartan, PRN hydralazine. #7. Hyperlipidemia: Continue home statin regimen. #8. Hx VTE (DVT): Noted remotely, currently on chronic NOAC but this per patient and report is for his underlying A-fib. #9. BPH: Will increase patient home Flomax to twice daily regimen given urinary retention admission. #10. Former tobacco use: Encourage continued tobacco cessation. #11. GERD: Will continue patient on PPI. #12. Hx Prostate CA: Per patient treated with course radiation therapy, from report had been considered in remission. #13. DVT prophylaxis: SCDs. #14. CODE status: Patient HCPOA and living will are not in place but his who is present he notes would be his decision maker if he was unable. Discussed CODE status at length including difference between FULL code, DNR-CCA and DNR-CC status. Following discussions about the differences in these status, requested Full Code status. Advanced Care Planning Face to Face Time: 16 minutes. Charges/Coding Visit Charges Inpatient E&M: 82974 Init Hosp L3 Procedures Hospitalists Procedures: 05374 Advncd Care Plan 30 Min
--- NOTE | 2023-12-24 21:48 | ED.RN ---
PT BEING ADMITTED, [facility] [place] CALLED AND FAXED CHART TO [phone]
[2023-12-24 22:06] LABS: Mucous, Urine 0 SEEN /hpf (<or=2+); Squamous Epithelial Cells - UA 0 SEEN /hpf (0-5)
[2023-12-24 22:08] LABS: Color, Urine Red (Yellow); Glucose, Dipstick Normal (Normal); Ketone-Dipstick 5 mg/dl (Negative); Leukocyte Esterase-Dipstick Negative /ul (Negative); Nitrite-Dipstick Negative (Negative); Occult Blood-Urine 250 /ul (Negative); Protein-Dipstick 500 mg/dl (Negative); Urine Bilirubin Dipstick Negative (Negative); Urine Clarity Cloudy (Clear); Urine Urobilinogen Normal (Normal)
[2023-12-24 22:17] LABS: Red Blood Cells-Urine > 100 SEEN /hpf (0-5); White Blood Cells 0-5 SEEN /hpf (0-5)
[2023-12-24 22:18] LABS: Bacteria 1+ /hpf (None Seen)
[2023-12-24] MEDS: 0.9% Normal Saline (1000mL) 1,000 ML 100 ML IV (23:54)
[2023-12-24] MEDS: Pregabalin 50 MG Capsule 100 MG PO (23:54)
[2023-12-24] MEDS: Pantoprazole Sodium 20 MG Tablet PO (23:55)
[2023-12-24] MEDS: Ferrous Sulfate 325 MG Tablet PO (23:55)
[2023-12-24] MEDS: Atenolol 25 MG Tablet PO (23:55)
[2023-12-24] MEDS: Docusate Sodium 100 MG Capsule 200 MG PO (23:56)
[2023-12-24] MEDS: Bisacodyl 5 MG Tablet 10 MG PO (23:56)
[2023-12-24] MEDS: Atorvastatin Calcium 20 MG Tablet PO (23:56)
[2023-12-25 03:15] VITALS: BMI 21.5
[2023-12-25 04:45] VITALS: BP 109/62; PULSE 74; RESP 16; TEMP 36.6; O2SAT 96
[2023-12-25] MEDS: Levothyroxine 150 MCG Tablet PO (06:17)
[2023-12-25 06:48] LABS: Absolute Lymphocyte Count 1.31 X10^3/uL (0.83-4.51); Absolute Neutrophil Count 7.2 X10^3/uL (2.0-7.7); Basophil# 0.03 X10^3/uL; Basophil% 0.3 % (0-1); Eosinophil# 0.05 X10^3/uL; Eosinophils% 0.5 % (0-5); Hematocrit 37.6 % (40-54); Hemoglobin 11.6 g/dL (13.0-16.5); Lymphocyte # 1.31 X10^3/ul (0.83-4.51); Lymphocyte % 13.7 % (19-41); Mean Corp Hgb Conc 30.9 g/dL (32-36); Mean Corpuscular Hgb 31.9 pg (27.0-32.0); Mean Corpuscular Volume 103.3 fL (80-94); Mean Platelet Vol. 10.1 fl (6.2-12.0); Monocyte# 0.88 X10^3/uL; Monocyte% 9.2 % (0-10); NRBC Flagged by Analyzer 0 % (0-5); Neutrophil # 7.22 X10^3/uL (2.7-7.7); Neutrophil % 75.9 % (47-70); Platelet Count 189 K/mm3 (150-450); RBC Distribution Width CV 12.7 % (11.6-14.6); RBC Distribution Width SD 48.3 fl (35.1-43.9); Red Blood Count 3.64 M/mm3 (4.6-6.2); White Blood Count 9.5 K/mm3 (4.4-11.0)
[2023-12-25 07:54] VITALS: BP 107/61; PULSE 62; RESP 18; TEMP 36.8; O2SAT 99
[2023-12-25 07:55] LABS: AST(SGOT) 17 U/L (15-37); Alanine Aminotransfer ALT/SGPT 14 U/L (16-61); Albumin, Serum 2.9 g/dL (3.2-5.0); Alkaline Phosphatase 60 U/L (45-117); Anion Gap 6 (5-15); BUN 25 mg/dL (7-18); BUN/Creat Ratio 21.6 RATIO (10-20); Calcium,Total 8.6 mg/dL (8.5-10.1); Chloride 117 mmol/L (98-107); Creatinine, Serum 1.16 mg/dL (0.70-1.30); EST Glomerular Filtration Rate 65 mL/min (>60); Est Glom Filt Rate - Afr Amer 79 mL/min (>60); Estimated Creatinine Clearance 58.39 ml/min; Globulin 2.8 g/dL (2.2-4.2); Glucose 108 mg/dL (74-106); Potassium 4.1 mmol/L (3.5-5.1); Protein, Total 5.7 g/dL (6.4-8.2); Sodium Level 145 mmol/L (136-145)
--- NOTE | 2023-12-25 07:59 | NURSING ---
pt refuses to be on cardiac diet-pt placed on reg diet and dr shore notified so it can be addressed on rounds
[2023-12-25] MEDS: Calcium (Elemental) 500 MG Tablet PO ×2 (09:55→21:44)
[2023-12-25] MEDS: Pantoprazole Sodium 20 MG Tablet PO ×2 (09:55→21:45)
[2023-12-25] MEDS: Clopidogrel Bisulfate 75 MG Tablet PO (09:55)
[2023-12-25] MEDS: Folic Acid 1 MG Tablet PO (09:55)
[2023-12-25] MEDS: POTASSIUM CITRATE 10 MEQ TABLET.ER PO ×4 (09:55→21:44)
[2023-12-25] MEDS: Losartan Potassium 100 MG Tablet PO (09:55)
--- NOTE | 2023-12-25 12:46 | DCINST_ITS ---
Discharge Instructions Diet Discharge Diet: No restrictions Activity Discharge Activity: No Restrictions Weight Bearing Status: Full weight bearing Follow Up Care Test Results: Test results from this visit will be discussed in further detail at your follow- up appointment, if applicable. Discharge Plan Admission Admit Date/Time: 12/24/23 21:45 Primary Reason for Your Visit: hematuria and urinary retention Attending Provider: Dariel Whitman Primary Care Provider: [facility] Consulting Providers: Martin Figueroa; Syeda Levin Instructions Additional Instructions / Restrictions: Please hold your Eliquis this weekend and start taking again on Thursday. Please have a repeat CBC drawn in 5-7 days to ensure your blood count remains stable. Follow up with your [facility] urologist in the office soon. Discharge Orders/Prescriptions Prescriptions: Continued Ascorbic Acid [Vitamin C] 500 MG tablet 500 mg PO DAILY acetaminophen 325 MG tablet 650 mg PO TID atorvastatin 20 MG tablet 20 mg PO QHS cyanocobalamin (vitamin B-12) 100 MCG tablet 100 mcg PO DAILY atenolol 25 MG tablet 25 mg PO QHS Patient Comments: per home med list, verified 12/25/23 pt takes in am aspirin 81 MG tablet,delayed release (DR/EC) 81 mg PO DAILY calcium carbonate 600 MG tablet 650 mg PO BID levothyroxine 150 MCG tablet 150 mcg PO MOTUWETHFRSA Rx Instructions: takes 1/2 tab on Sundays omeprazole 20 MG capsule 20 mg PO BID folic acid 1 MG tablet 1 mg PO DAILY zolpidem 10 MG tablet 10 mg PO QHS losartan 100 MG tablet 100 mg PO DAILY bisacodyl 5 MG tablet 10 mg PO QHS cholecalciferol (vitamin D3) 2,000 UNIT capsule 2,000 unit PO DAILY potassium citrate 10 MEQ tablet extended release 10 meq PO 4X/DAY topiramate [Topamax] 200 mg tablet 200 mg PO BID clopidogrel [Plavix] 75 mg tablet 75 mg PO DAILY docusate sodium 100 mg capsule 100 mg PO QHS sucralfate [Carafate] 1 gram tablet 1 g PO BID potassium citrate 10 mEq (1,080 mg) tablet extended release 10 meq PO BID Changed ferrous sulfate 325 MG tablet 325 mg PO DAILY 30 Days Qty: 30 0RF Held apixaban 5 MG tablet 5 mg PO BID Hold Instructions: Resume on 12/28/23. Holding for blood in urine, resume on Wednesday 12/27. Referrals / Follow Up: [facility] [Primary Care Provider] - Disposition Disposition (needs filled in before D/C Order can be placed): Home, Self Care
--- NOTE | 2023-12-25 12:50 | PCM.DC.SUM ---
Providers Date of Admission: 12/24/23 Date of Discharge: 12/26/23 Primary Care Physician: [facility] Consultations 12/24/23 22:54 Consult: Urology Routine Consulting Provider: Martin Figueroa Reason for Consult: Hematuria, urinary retension EMERGENT Consult: No MD Notified: Yes Date Notified: 12/24/23 Time Notified: 21:46 Method of Notification: ED Physician Initiated Reason For Visit: URINARY RETENTION, HYDRO, HEMATURIA Diagnosis Discharge Diagnosis (1) Acute urinary retention: Status: Acute Code(s): R33.8 - Other retention of urine (2) Hematuria: Status: Acute Code(s): R31.9 - Hematuria, unspecified Medications at Discharge Home Medications Ascorbic Acid [Vitamin C] 500 mg PO DAILY 02/04/21 acetaminophen 325 mg tablet 650 mg PO TID fever or pain 02/04/21 apixaban 5 mg tablet 5 mg PO BID 02/04/21 aspirin 81 mg tablet,delayed release 81 mg PO DAILY not taking 02/04/21 atenolol 25 mg tablet 25 mg PO QHS HEART 02/04/21 atorvastatin 20 mg tablet 20 mg PO QHS CHOLESTEROL 02/04/21 bisacodyl 5 mg tablet 10 mg PO QHS LAXATIVE 02/04/21 calcium carbonate 600 mg calcium (1,500 mg) tablet 650 mg PO BID 02/04/21 cholecalciferol (vitamin D3) 50 mcg (2,000 unit) capsule 2,000 unit PO DAILY 02/04/21 cyanocobalamin (vitamin B-12) 100 mcg tablet 100 mcg PO DAILY 02/04/21 folic acid 1 mg tablet 1 mg PO DAILY 02/04/21 levothyroxine 150 mcg tablet 150 mcg PO MOTUWETHFRSA 02/04/21 losartan 100 mg tablet 100 mg PO DAILY 02/04/21 omeprazole 20 mg capsule,delayed release 20 mg PO BID 02/04/21 potassium citrate 10 mEq (1,080 mg) tablet,extended release 10 meq PO 4X/DAY 02/04/21 zolpidem 10 mg tablet 10 mg PO QHS SLEEP 02/04/21 topiramate 200 mg tablet (Topamax) 200 mg PO BID 12/24/23 clopidogrel 75 mg tablet (Plavix) 75 mg PO DAILY stent 12/25/23 docusate sodium 100 mg capsule 100 mg PO QHS constipation 12/25/23 ferrous sulfate 325 mg (65 mg iron) tablet 325 mg PO DAILY 30 days #30 tabs 12/25/23 potassium citrate 10 mEq (1,080 mg) tablet,extended release 10 meq PO BID supplement 12/25/23 sucralfate 1 gram tablet (Carafate) 1 g PO BID gerd 12/25/23 Hospital Course Operations None Procedures - (Cystoscopy with dilation of prostatic stricture and bladder irrigation, CT abdomen pelvis without contrast) Summary of Care Provided Minutes Spent on Discharge: 35 Hospital Course: Patient is a 78-year-old male who presented to [facility] ED on 12/24/2023 with acute onset hematuria and worsening abdominal pain. Hospital course as noted below. Patient was discharged home with no therapy needs in stable condition on 12/25. 1. 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 CT abdomen pelvis on admit showed moderate bilateral hydroureteronephrosis without evidence for ureteral calculus, concerning for bladder outlet obstruction. ? Urology evaluated in ED, flexible cystoscopy done at bedside in ED that showed a dense prostatic stricture was able to be dilated. 20 Vietnamese catheter was then placed over the dilators with bladder, manually irrigated significant amount of clots out of the bladder and then set catheter to drain. ? Patient continued to have moderate blood urine output from the catheter on 12/24. By 12/25, urine output appeared slightly less bloody and patient's hemoglobin stabilized as noted below. Patient was also not requiring bladder irrigation frequently by 12/25. ? Patient discharged home in stable condition on 12/25. Catheter remained in place on discharge. Plan is for patient to follow-up early this coming week with his [facility] urologist to discuss next steps in his care. 2. CAD s/p recent stenting ? S/p PCI most recently at the [place] in 09/2023. Had been on Plavix and Eliquis since then. ? Continued Plavix and held Eliquis during hospitalization. Given his downtrending hemoglobin, decision was made to hold Eliquis on discharge as well. Continued Plavix and home atenolol, losartan and statin on discharge. Recommended that the patient follow-up soon with both his [facility] branch coordinator and urologist to discuss a multidisciplinary approach regarding how to manage his Plavix and Eliquis going forward. 3. A-fib ? Eliquis held on discharge as noted above. Continued home atenolol. 4. Acute on chronic anemia ? Hemoglobin 13.7 on admit, repeat hemoglobin 11.6 on morning of 12/24. Hemoglobin slowly downtrended during hospitalization, hemoglobin 11.1 on afternoon of 12/24, down to 10.3 on morning of 12/25. Hemoglobin then stabilized with repeat 10.2 on afternoon of 12/25. This consulted with improvement in the appearance of his urine output and decreased need for bladder irrigation. ? Continued Plavix, held Eliquis on discharge as noted above. Recommend rechecking CBC in 3 to 5 days to ensure that hemoglobin has remained stable. Chronic medical conditions: ? 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 ? BPH with obstructive symptoms: Follows with [facility] urology as noted above. Was reportedly taken off Flomax recently, Flomax held during hospitalization. ? Former tobacco use: Encouraged continued cessation. ? GERD: Continue home PPI. Total clinical time spent by myself addressing the patient's medical issues, reviewing all the data, and collaborating with patient's care team: 35 minutes. Physical Exam Const alert, oriented x3, no apparent distress and average body habitus Constitutional Narrative: Pleasant elderly male, mild fatigued appearing, otherwise sitting up comfortably in bed, conversing normally, no acute distress. General Appearance: cooperative and comfortable HEENT normocephalic, head/scalp atraumatic, hearing grossly normal bilaterally, nasal mucous membranes and turbinates normal and moist oral mucous membranes Eyes PERRL, EOMs intact bilaterally and conjunctivae normal Neck full ROM Chest inspection of chest normal Resp normal respiratory effort, normal air movement, no use of accessory muscles and clear to auscultation bilaterally Cardio regular rate, regular rhythm, no murmurs and peripheral pulses 2+ throughout GI normal to inspection, nondistended, normoactive bowel sounds, soft to palpation, non-tender and non-distended no CVA tenderness Narrative: Mildly dark red urine output noted, improved from on admission. Bladder / Kidney Exam: catheter in place and bladder normal to palpation Back/Spine normal ROM Extremity normal to inspection, full ROM and no pedal edema Skin no rashes or lesions noted Neuro moves all extremities and no focal motor deficits Speech: speech normal Psych mental status grossly normal Weight / BMI Weight Weight: 76.2 kg Body Mass Index (BMI) 21.5 ABG / Lab / Microbiology Data 12/26/23 12:09 12/26/23 07:44 Laboratory: Laboratory Results - last 24 hr 12/24/23 17:37: WBC 9.1, RBC 4.28 L, Hgb 13.7, Hct 43.5, MCV 101.6 H, MCH 32.0, MCHC 31.5 L, RDW Std Deviation 47.6 H, RDW Coeff of Garth 12.7, Plt Count 218, MPV 10.4, Immature Gran % (Auto) 0.400, Neut % (Auto) 75.0 H, Lymph % (Auto) 16.4 L, [place] % (Auto) 7.2, Eos % (Auto) 0.7, Baso % (Auto) 0.3, Absolute Neuts (auto) 6.9, Absolute Lymphs (auto) 1.50, Nucleated RBC % 0, Sodium 144, Potassium 4.2, Chloride 113 H, Carbon Dioxide 23.0, Anion Gap 8, BUN 26 H, Creatinine 1.15, Estim Creat Clear Calc 59.60, Est GFR (MDRD) Af Amer 79, Est GFR (MDRD) Non-Af 66, BUN/Creatinine Ratio 22.6 H, Glucose 104, Calcium 9.4 12/24/23 21:55: Urine Color Red, Urine Clarity Cloudy, Urine pH 7.0, Ur Specific [place] 1.010, Urine Protein 500 H, Urine Glucose (UA) Normal, Urine Ketones 5 H, Urine Occult Blood 250 H, Urine Nitrite Negative, Urine Bilirubin Negative, Urine Urobilinogen Normal, Ur Leukocyte Esterase Negative, Urine RBC > 100 SEEN, Urine WBC 0-5 SEEN, Ur Squamous Epith Cells 0 SEEN, Urine Bacteria 1+, Urine Mucus 0 SEEN 12/25/23 06:35: WBC 9.5, RBC 3.64 L, Hgb 11.6 L, Hct 37.6 L, MCV 103.3 H, MCH 31.9, MCHC 30.9 L, RDW Std Deviation 48.3 H, RDW Coeff of Garth 12.7, Plt Count 189, MPV 10.1, Immature Gran % (Auto) 0.400, Neut % (Auto) 75.9 H, Lymph % (Auto) 13.7 L, [place] % (Auto) 9.2, Eos % (Auto) 0.5, Baso % (Auto) 0.3, Absolute Neuts (auto) 7.2, Absolute Lymphs (auto) 1.31, Nucleated RBC % 0, Sodium 145, Potassium 4.1, Chloride 117 H, Carbon Dioxide 22.0, Anion Gap 6, BUN 25 H, Creatinine 1.16, Estim Creat Clear Calc 58.39, Est GFR (MDRD) Af Amer 79, Est GFR (MDRD) Non-Af 65, BUN/Creatinine Ratio 21.6 H, Glucose 108 H, Calcium 8.6, Total Bilirubin 0.50, AST 17, ALT 14 L, Alkaline Phosphatase 60, Total Protein 5.7 L, Albumin 2.9 L, Globulin 2.8, Albumin/Globulin Ratio 1.0 Radiography Diagnostic Testing: Radiology Impression Abdomen/Pelvis CT 12/24/23 17:51 IMPRESSION: Multiple nonobstructing right renal calculi. Small left renal cyst which will not require additional imaging Moderate bilateral hydroureteronephrosis without evidence for ureteral calculus possibly due to bladder outlet obstruction although cannot definitively exclude bladder wall mass in association with intravesical hemorrhage. Electronically Signed: Tristan Steiner MD at 18:46 EST Reading Location ID and State: [facility] / [place] Tel , Service support , D/C Instructions Discharge Diet: No restrictions Weight Bearing Status: Full weight bearing Meaningful Use Info Meaningful Use Diagnoses (Choose all that apply): None applicable Discharge Plan Admission Admit Date/Time: 12/24/23 21:45 Primary Reason for Your Visit: hematuria and urinary retention Attending Provider: Dariel Whitman Primary Care Provider: [place], [place] Consulting Providers: Martin Figueroa; Syeda Levin Instructions Additional Instructions / Restrictions: Please hold your Eliquis until you see both [facility]rology and Cardiology in the office to discuss further. Continue Plavix. Recommend repeat CBC in 3-5 days to ensure that your hemoglobin has remained stable. Discharge Orders/Prescriptions Prescriptions: Continued Ascorbic Acid [Vitamin C] 500 MG tablet 500 mg PO DAILY acetaminophen 325 MG tablet 650 mg PO TID atorvastatin 20 MG tablet 20 mg PO QHS cyanocobalamin (vitamin B-12) 100 MCG tablet 100 mcg PO DAILY atenolol 25 MG tablet 25 mg PO QHS Patient Comments: per home med list, verified 12/25/23 pt takes in am aspirin 81 MG tablet,delayed release (DR/EC) 81 mg PO DAILY calcium carbonate 600 MG tablet 650 mg PO BID levothyroxine 150 MCG tablet 150 mcg PO MOTUWETHFRSA Rx Instructions: takes 1/2 tab on Sundays omeprazole 20 MG capsule 20 mg PO BID folic acid 1 MG tablet 1 mg PO DAILY zolpidem 10 MG tablet 10 mg PO QHS losartan 100 MG tablet 100 mg PO DAILY bisacodyl 5 MG tablet 10 mg PO QHS cholecalciferol (vitamin D3) 2,000 UNIT capsule 2,000 unit PO DAILY potassium citrate 10 MEQ tablet extended release 10 meq PO 4X/DAY topiramate [Topamax] 200 mg tablet 200 mg PO BID clopidogrel [Plavix] 75 mg tablet 75 mg PO DAILY docusate sodium 100 mg capsule 100 mg PO QHS sucralfate [Carafate] 1 gram tablet 1 g PO BID potassium citrate 10 mEq (1,080 mg) tablet extended release 10 meq PO BID Changed ferrous sulfate 325 MG tablet 325 mg PO DAILY 30 Days Qty: 30 0RF Held apixaban 5 MG tablet 5 mg PO BID Hold Instructions: Resume on 12/28/23. Holding for blood in urine, resume on Wednesday 12/27. Referrals / [facility] [[facility] - Disposition Disposition (needs filled in before D/C Order can be placed): Home, Self Care Charges/Coding Visit Charges Inpatient E&M: 01556 Disch Hosp >30min
[2023-12-25 13:00] VITALS: BP 104/58; PULSE 60; RESP 18; TEMP 37.7; O2SAT 93
--- NOTE | 2023-12-25 13:17 | PHA.DC_ITS ---
[facility] has performed discharge medication reconciliation for this patient. The patient's discharge medication list was reviewed for discrepancies and discrepancies were resolved. Medications at Discharge Home Medications Ascorbic Acid [Vitamin C] 500 mg PO DAILY 02/04/21 acetaminophen 325 mg tablet 650 mg PO TID fever or pain 02/04/21 apixaban 5 mg tablet 5 mg PO BID 02/04/21 aspirin 81 mg tablet,delayed release 81 mg PO DAILY not taking 02/04/21 atenolol 25 mg tablet 25 mg PO QHS HEART 02/04/21 atorvastatin 20 mg tablet 20 mg PO QHS CHOLESTEROL 02/04/21 bisacodyl 5 mg tablet 10 mg PO QHS LAXATIVE 02/04/21 calcium carbonate 600 mg calcium (1,500 mg) tablet 650 mg PO BID 02/04/21 cholecalciferol (vitamin D3) 50 mcg (2,000 unit) capsule 2,000 unit PO DAILY 02/04/21 cyanocobalamin (vitamin B-12) 100 mcg tablet 100 mcg PO DAILY 02/04/21 folic acid 1 mg tablet 1 mg PO DAILY 02/04/21 levothyroxine 150 mcg tablet 150 mcg PO MOTUWETHFRSA 02/04/21 losartan 100 mg tablet 100 mg PO DAILY 02/04/21 omeprazole 20 mg capsule,delayed release 20 mg PO BID 02/04/21 potassium citrate 10 mEq (1,080 mg) tablet,extended release 10 meq PO 4X/DAY 02/04/21 zolpidem 10 mg tablet 10 mg PO QHS SLEEP 02/04/21 topiramate 200 mg tablet (Topamax) 200 mg PO BID 12/24/23 clopidogrel 75 mg tablet (Plavix) 75 mg PO DAILY stent 12/25/23 docusate sodium 100 mg capsule 100 mg PO QHS constipation 12/25/23 ferrous sulfate 325 mg (65 mg iron) tablet 325 mg PO DAILY 30 days #30 tabs 12/25/23 potassium citrate 10 mEq (1,080 mg) tablet,extended release 10 meq PO BID supplement 12/25/23 sucralfate 1 gram tablet (Carafate) 1 g PO BID gerd 12/25/23
--- NOTE | 2023-12-25 13:49 | PCM.PN.HOSP ---
Reason for Visit Reason for Visit: Diagnoses Malignant neoplasm of prostate (12/24/23) Hematuria, unspecified (12/24/23) Other retention of urine (12/24/23) Subjective Subjective Patient admitted yesterday evening for acute onset hematuria in setting of known history of prostate cancer and A-fib on Eliquis, as well as development of abdominal pain concerning for urinary retention. Had Mathis catheter placed in the ED by urology with bloody urine output, was admitted for frequent irrigation of catheter by nursing staff as well as monitoring for acute blood loss anemia. Patient seen at bedside early this afternoon, was in the bathroom when I attempted to see him this morning. Patient's was at the bedside with him. Patient was sitting up in bed fairly comfortably, conversing normally and in no acute distress. However he did appear fairly fatigued and noted that he had started to have some fevers and chills over the past hour or so. He also notes continued moderately bloody urine output at this point. He denies any pain or discomfort at this time. No other acute concerns. Objective Data Objective Data Vital Signs: Vital Signs Temp Pulse Resp BP Pulse Ox O2 Del Method 98.3 F 62 18 107/61 99 Room Air 12/25/23 07:54 12/25/23 07:54 12/25/23 07:54 12/25/23 07:54 12/25/23 07:54 12/25/23 07:54 Oxygen Delivery Method Room Air Weight: 76.2 kg Body Mass Index (BMI) 21.5 Intake & Output: Intake and Output for Last 24 Hours 12/23/23 12/24/23 12/25/23 23:59 23:59 23:59 Intake Total 1000 / 1050 750 / 750 Output Total 1200 / 1200 Balance 1000 / 800 -450 / -450 Lab / Micro Data 12/25/23 16:46 12/25/23 06:35 Labs: Laboratory Results - last 24 hr 12/24/23 17:37: WBC 9.1, RBC 4.28 L, Hgb 13.7, Hct 43.5, MCV 101.6 H, MCH 32.0, MCHC 31.5 L, RDW Std Deviation 47.6 H, RDW Coeff of Garth 12.7, Plt Count 218, MPV 10.4, Immature Gran % (Auto) 0.400, Neut % (Auto) 75.0 H, Lymph % (Auto) 16.4 L, [place] % (Auto) 7.2, Eos % (Auto) 0.7, Baso % (Auto) 0.3, Absolute Neuts (auto) 6.9, Absolute Lymphs (auto) 1.50, Nucleated RBC % 0, Sodium 144, Potassium 4.2, Chloride 113 H, Carbon Dioxide 23.0, Anion Gap 8, BUN 26 H, Creatinine 1.15, Estim Creat Clear Calc 59.60, Est GFR (MDRD) Af Amer 79, Est GFR (MDRD) Non-Af 66, BUN/Creatinine Ratio 22.6 H, Glucose 104, Calcium 9.4 12/24/23 21:55: Urine Color Red, Urine Clarity Cloudy, Urine pH 7.0, Ur Specific [place] 1.010, Urine Protein 500 H, Urine Glucose (UA) Normal, Urine Ketones 5 H, Urine Occult Blood 250 H, Urine Nitrite Negative, Urine Bilirubin Negative, Urine Urobilinogen Normal, Ur Leukocyte Esterase Negative, Urine RBC > 100 SEEN, Urine WBC 0-5 SEEN, Ur Squamous Epith Cells 0 SEEN, Urine Bacteria 1+, Urine Mucus 0 SEEN 12/25/23 06:35: WBC 9.5, RBC 3.64 L, Hgb 11.6 L, Hct 37.6 L, MCV 103.3 H, MCH 31.9, MCHC 30.9 L, RDW Std Deviation 48.3 H, RDW Coeff of Garth 12.7, Plt Count 189, MPV 10.1, Immature Gran % (Auto) 0.400, Neut % (Auto) 75.9 H, Lymph % (Auto) 13.7 L, [place] % (Auto) 9.2, Eos % (Auto) 0.5, Baso % (Auto) 0.3, Absolute Neuts (auto) 7.2, Absolute Lymphs (auto) 1.31, Nucleated RBC % 0, Sodium 145, Potassium 4.1, Chloride 117 H, Carbon Dioxide 22.0, Anion Gap 6, BUN 25 H, Creatinine 1.16, Estim Creat Clear Calc 58.39, Est GFR (MDRD) Af Amer 79, Est GFR (MDRD) Non-Af 65, BUN/Creatinine Ratio 21.6 H, Glucose 108 H, Calcium 8.6, Total Bilirubin 0.50, AST 17, ALT 14 L, Alkaline Phosphatase 60, Total Protein 5.7 L, Albumin 2.9 L, Globulin 2.8, Albumin/Globulin Ratio 1.0 Radiography Diagnostic Testing: Radiology Impression Abdomen/Pelvis CT 12/24/23 17:51 IMPRESSION: Multiple nonobstructing right renal calculi. Small left renal cyst which will not require additional imaging Moderate bilateral hydroureteronephrosis without evidence for ureteral calculus possibly due to bladder outlet obstruction although cannot definitively exclude bladder wall mass in association with intravesical hemorrhage. Electronically Signed: Tristan Steiner MD at 18:46 EST Reading Location ID and State: [facility] / [place] Tel , Service support , Physical Exam Const alert, oriented x3, no apparent distress and average body habitus Constitutional Narrative: Pleasant elderly male, moderately fatigued appearing, otherwise sitting up comfortably in bed, conversing normally, no acute distress. General Appearance: cooperative and comfortable HEENT normocephalic, head/scalp atraumatic, hearing grossly normal bilaterally, nasal mucous membranes and turbinates normal and moist oral mucous membranes Eyes PERRL, EOMs intact bilaterally and conjunctivae normal Neck full ROM Chest inspection of chest normal Resp normal respiratory effort, normal air movement, no use of accessory muscles and clear to auscultation bilaterally Cardio regular rate, regular rhythm, no murmurs and peripheral pulses 2+ throughout GI normal to inspection, nondistended, normoactive bowel sounds, soft to palpation, non-tender and non-distended no CVA tenderness Narrative: Moderately dark red urine output noted. Bladder / Kidney Exam: catheter in place and bladder normal to palpation Back/Spine normal ROM Extremity normal to inspection, full ROM and no pedal edema Skin no rashes or lesions noted Neuro moves all extremities and no focal motor deficits Speech: speech normal Psych mental status grossly normal Assessment & Plan Assessment/Plan (1) Difficult Mathis catheter placement: (2) Acute urinary retention: (3) Hematuria: PLAN: Plan Patient is a 78-year-old male who presented to [facility] ED on 12/24/2023 with acute onset hematuria and worsening abdominal pain. 1. 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 CT abdomen pelvis on admit showed moderate bilateral hydroureteronephrosis without evidence for ureteral calculus, concerning for bladder outlet obstruction. ? Urology evaluated in ED, flexible cystoscopy done at bedside in ED that showed a dense prostatic stricture was able to be dilated. 20 [place]ian catheter was then placed over the dilators with bladder, manually irrigated significant amount of clots out of the bladder and then set catheter to drain. ? Patient continues to have moderate bloody urine output from catheter on 12/24. Remains hemodynamically stable, trending CBC as noted below. Continue bladder irrigation as recommended by urology. 2. CAD s/p recent stenting ? S/p PCI most recently at the [facility] in 09/2023. Has been on Plavix and Eliquis since then. Will continue Plavix given recent stent placement, holding Eliquis as noted below. Continue home atenolol, losartan, statin. 3. A-fib ? Continue home atenolol, holding Eliquis as noted above. 4. Acute on chronic anemia ? Hemoglobin 13.7 on admit, repeat hemoglobin 11.6 on morning of 12/24. CBG rechecked on afternoon of 12/24, hemoglobin stable at 11.1. Patient remains hemodynamically stable. Repeat CBC tomorrow morning. Continue Plavix, hold Eliquis as noted above. Chronic medical conditions: ? 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 ? BPH with obstructive symptoms: Follows with [facility] urology as noted above. Was reportedly taken off Flomax recently, will hold Flomax during his hospitalization and defer to outpatient urology on discharge. ? Former tobacco use: Encouraged continued cessation. ? GERD: Continue home PPI. DVT prophylaxis: SCDs CODE STATUS: Full code, unverified Expected disposition: Home, 1 to 2 days Total clinical time spent by myself addressing the patient's medical issues, reviewing all the data, and collaborating with patient's care team: 35 minutes. Charges/Coding Visit Charges Inpatient E&M: 78760 Subs Hosp L2
--- NOTE | 2023-12-25 15:30 | CASEMGMT ---
Addendum entered by Mike Espana 12/25/23 16:03: Pt also has a built-in shower seat Original Note: RN?CM?FITNESS DIRECTOR?CM?to room to meet with patient for initial transition planning/care coordination?assessment.?RN?CM?introduced self and role at [facility].? Pt voices understanding and consents to?assessment?at this time.? Pt resting in bed in no distress at this time.? Pt is A/O at this time and answers all questions appropriately.?? Care providers, pharmacy, and demographics verified/updated at this time. PCP: [facility] Specialists: [employer] and urologist @ [place] Preferred Pharmacy: [facility] Retail @ discharge. Gets all of his meds from the [facility] unless needs them right away or on weekends. Insurance: [employer] [facility] Prescription Benefit:? yes Living Will/HPOA:? States did LW and HCPOA when he lived in [place] but it was years ago and he does not have a copy of them .? Interested in more information and would like to complete AD if SW available. Provided information on advanced directives and made aware if SW unavailable to meet w/him while an IN-patient, that AD can be completed w/SW as an OP. He voices understanding. LNOK: , Jesica. 2 adult children. Daughter, Waleska. Living Arrangements: Lives w/his in one-story home w/basement w/2 steps to enter. Independent w/ADL's and IADL's. Transportation:?Pt can drive, but does not drive often. does most of the driving. DME: ?Has a cane he uses on occasion. Denies need for other DME HHC/SNF: No hx of either. No needs identified. Pt wishes to return home and states has no concerns with going home at time of discharge.??CM?to follow for any discharge planning/needs.? Pt voices no concerns/needs at this time.? Advised pt to ask for?CM?if any questions/concerns/needs arise.? Voices understanding. PLAN:??Home Warren SAHUN?RN?CM
[2023-12-25] MEDS: Ferrous Sulfate 325 MG Tablet PO (16:12)
[2023-12-25] MEDS: Sucralfate 1 GM Tablet PO (16:12)
[2023-12-25 16:47] VITALS: BP 104/58; PULSE 58; RESP 18; TEMP 37.1; O2SAT 93
[2023-12-25 17:01] LABS: Hemoglobin 11.1 g/dL (13.0-16.5); Mean Corp Hgb Conc 30.8 g/dL (32-36); Mean Corpuscular Hgb 31.7 pg (27.0-32.0); Mean Corpuscular Volume 102.9 fL (80-94); Mean Platelet Vol. 10.3 fl (6.2-12.0); Platelet Count 208 K/mm3 (150-450); RBC Distribution Width SD 49.3 fl (35.1-43.9); White Blood Count 9.5 K/mm3 (4.4-11.0)
[2023-12-25 19:55] VITALS: BP 103/47; PULSE 75; RESP 16; TEMP 37.5; O2SAT 98
[2023-12-25] MEDS: Atorvastatin Calcium 20 MG Tablet PO (21:44)
[2023-12-25] MEDS: Atenolol 25 MG Tablet PO (21:44)
[2023-12-25] MEDS: Pregabalin 50 MG Capsule 100 MG PO (21:44)
[2023-12-25] MEDS: traZODone 50 MG Tablet PO (21:44)
[2023-12-26 02:31] VITALS: BP 97/51; PULSE 65; RESP 16; TEMP 37.4; O2SAT 97
[2023-12-26] MEDS: Sucralfate 1 GM Tablet PO (06:05)
[2023-12-26] MEDS: Levothyroxine 150 MCG Tablet PO (06:10)
[2023-12-26 06:33] LABS: Hematocrit 32.4 % (40-54); Hemoglobin 10.3 g/dL (13.0-16.5); Mean Corp Hgb Conc 31.8 g/dL (32-36); Mean Corpuscular Hgb 31.9 pg (27.0-32.0); Mean Corpuscular Volume 100.3 fL (80-94); Mean Platelet Vol. 10.7 fl (6.2-12.0); Platelet Count 160 K/mm3 (150-450); RBC Distribution Width CV 12.6 % (11.6-14.6); RBC Distribution Width SD 46.5 fl (35.1-43.9); Red Blood Count 3.23 M/mm3 (4.6-6.2); White Blood Count 8.2 K/mm3 (4.4-11.0)
[2023-12-26 07:31] VITALS: O2SAT 97
[2023-12-26 08:02] VITALS: BP 104/54; PULSE 59; RESP 16; TEMP 37; O2SAT 99
[2023-12-26 08:32] LABS: Anion Gap 5 (5-15); BUN 28 mg/dL (7-18); BUN/Creat Ratio 26.4 RATIO (10-20); Calcium,Total 8.4 mg/dL (8.5-10.1); Chloride 113 mmol/L (98-107); Creatinine, Serum 1.06 mg/dL (0.70-1.30); EST Glomerular Filtration Rate 72 mL/min (>60); Est Glom Filt Rate - Afr Amer 87 mL/min (>60); Glucose 100 mg/dL (74-106); Potassium 3.5 mmol/L (3.5-5.1); Sodium Level 141 mmol/L (136-145)
[2023-12-26] MEDS: Acetaminophen 325 MG Tablet 650 MG PO (09:31)
[2023-12-26] MEDS: Pantoprazole Sodium 20 MG Tablet PO (09:31)
[2023-12-26] MEDS: POTASSIUM CITRATE 10 MEQ TABLET.ER PO (09:31)
[2023-12-26] MEDS: Calcium (Elemental) 500 MG Tablet PO (09:32)
[2023-12-26] MEDS: Folic Acid 1 MG Tablet PO (09:32)
[2023-12-26] MEDS: Clopidogrel Bisulfate 75 MG Tablet PO (09:32)
[2023-12-26] MEDS: Ferrous Sulfate 325 MG Tablet PO (12:00)
[2023-12-26 12:39] LABS: Hematocrit 32.7 % (40-54); Hemoglobin 10.2 g/dL (13.0-16.5); Mean Corp Hgb Conc 31.2 g/dL (32-36); Mean Corpuscular Volume 102.5 fL (80-94); Mean Platelet Vol. 10.7 fl (6.2-12.0); Platelet Count 162 K/mm3 (150-450); RBC Distribution Width CV 12.7 % (11.6-14.6); RBC Distribution Width SD 48.1 fl (35.1-43.9); Red Blood Count 3.19 M/mm3 (4.6-6.2); White Blood Count 7.6 K/mm3 (4.4-11.0)
[2023-12-26 13:23] LABS: Ferritin 711 ng/mL (26-388); Iron 37 ug/dL (65-175); Iron Binding Capacity,Total 227 ug/dL (250-450); PERCENT IRON SATURATION 16.3 % (15.0-55.0)
[2023-12-26 14:31] VITALS: BP 97/60; PULSE 64; RESP 16; TEMP 36.8; O2SAT 100
[2023-12-28 08:42] LABS: Vitamin B12 343 pg/mL (211-911)
== END 2023-12-26 17:00 | disposition home or self-care (01) | DRG 726 ==
LOC: ED 18:37 → MS3 22:36
PROVIDERS: Physician Assistant; Admitting Provider Family Medicine; Emergency Provider Emergency Medicine; Visit Provider Hospitalist
DX: N40.1 Benign prostatic hyperplasia with lower urinary tract symptoms (principal); N13.2 Hydronephrosis with renal and ureteral calculous obstruction; D50.9 Iron deficiency anemia, unspecified; I48.0 Paroxysmal atrial fibrillation; E89.0 Postprocedural hypothyroidism; I10 Essential (primary) hypertension; I25.10 Atherosclerotic heart disease of native coronary artery without angina pectoris; K21.9 Gastro-esophageal reflux disease without esophagitis; E78.5 Hyperlipidemia, unspecified; Z80.3 Family history of malignant neoplasm of breast; Z79.82 Long term (current) use of aspirin; Z80.42 Family history of malignant neoplasm of prostate; Z80.0 Family history of malignant neoplasm of digestive organs; Z87.891 Personal history of nicotine dependence; Z82.3 Family history of stroke; N32.0 Bladder-neck obstruction; Z95.5 Presence of coronary angioplasty implant and graft; Z79.02 Long term (current) use of antithrombotics/antiplatelets; Z87.442 Personal history of urinary calculi; Z79.01 Long term (current) use of anticoagulants; Z86.718 Personal history of other venous thrombosis and embolism; Z85.46 Personal history of malignant neoplasm of prostate; R33.8 Other retention of urine; Z85.850 Personal history of malignant neoplasm of thyroid; R31.0 Gross hematuria
CPT/HCPCS: 36415; 74176; 80048; 80053; 81001; 82607; 82728; 82746; 83540; 83550; 85025; 85027; 87086; 94668; 97161; 99284; J7030; A4216; J2405

== ENCOUNTER → 2024-02-15 | Outpatient (CLI) | payer OTHER, SELFPAY ==
[2021-02-04 10:46] VITALS: BMI 23.0
--- NOTE | 2024-02-15 09:52 | CR.ITP_ITS ---
Diagnosis General Information Admitting Diagnosis: PCI w/coronary stenting Secondary Diagnosis: A-FIB, uncompensated heart failure, aortic stenosis, Third degree AV block, Personal Learning Style:: Audio/Visual and Written Barriers to Learning: Cognitive/Learning Impairment, Hearing Impairment and Vision Impairment Gave educational material for:: Treating Heart Disease, How The Heart Works, What it means to have Heart Disease, How Coronary Artery Disease is Diagnosed, Heart Procedures, What Heart Medications Do, Risk Factors & Modifications, Living an Active Life, Nutrition, Emotions & Heart Disease, Stress Management & Relaxation and Sleep Disorders & Heart Disease Education/Goals Individual Counseling: Initial Assessment: Abnormal Cholesterol Levels and High Blood Pressure Cardiac Rehabilitation Goals Personal Goals: Initial Assessment: Improve energy level and Improve muscle strength and endurance Scale for measuring improvement of personal goals Diagnosis & Disease Process Outcomes/Goals: Pt IDs own risk factors & lifestyle modifications by Session 10, Verbalizes symptoms of angina & response by session 3. and Pt independently manages Plan/Interventions: Assist Pt to ID & engage in lifestyle modification to reduce CVD risk, Instruct on individual risk factors, Review symptoms of angina & emergency actions and Review secondary diagnosis & identify educational needs. Safety Referral to Physical Therapy: No Referral to [facility] Case Management: No Fall Risk Assessed:: Yes Assistive Devices:: None Exercise - Initial Assessment Visit Date of Eval: 02/15/24 Session #:: 0 (Pre-program evaluation) Mets: Pre-: >5 METS for 30 minutes by discharge Physician Prescribed Exercise Modalities: Treadmill, Airdyne and NuStep Frequency: 3x/week for 12 weeks [36 sessions] Intensity: 60-80% of age predicted maximum heart rate reserve Current METSs:: 3.0 Target Heart Rate:: 93-107 Resting Blood Pressure: 105/55 EKG Type: A-FIBRILLATION (long standing/chronic) Outcomes & Goals Goals:: Verbalizes understanding of THR, RPE & goal METS by session 6, Documents in home exercise log/reports 30 min aerobic 5 day/wk by DC and Demonstrates ac curate pulse taking by DC Intervention & Plan Exercise Program Goals: Instruct on personal THR & RPE, Instruct on MET level & personal MET goal, Show patient to take own pulse /validate performance until accurate and Instruct on home exercise Physical Activity Home Exercise Physical Activity - Home Exercise: Safe Exercise, Warm-up, Self-monitoring, Cool-Down, Home Exercise > 30 min Daily and Sitting Time <3 hours/daily Outcomes & Goals Outcomes/Goals: Demonstrates correct Warm-up/exercise Cool-Down (S3) if = 2.5 METs, Verbalizes symptoms of exercise intolerance by Session 3 (S3) and Demonstrate safe equipment use (S3) & follows exercise prescrition (6) Intervention & Plan Plan/Intervention: Instruct warm-up & cool-down if exercising at > 2 METs, Instruct on symptoms of exercise intolerance & actions to take, Instruct & monitor on saf and Assess intial functional capacity & safety risk Nutrition - Initial Assessment Program Goals Nutrition Program Goals Patient has diagnosis of Hyperlipidemia (ICD E78)?: Yes Visit Date of Eval: 02/15/24 Session #:: 0 (pre-program evaluation) Cholesterol/Lipids (Other Core Measures) Triglycerides (mg/dL): 103 Total Cholesterol (mg/dL): 108 LDL Cholesterol (mg/dL): 58 HDL Cholesterol (mg/dL): 34 Determine presence & major risk factors that modify LDL goal: Hypertension or hypertensive medication and Age men > 45 years; women >/= 55 years Outcomes/Goals: Pt IDs own risk factors & lifestyle modifications by Session 10, Verbalizes symptoms of angina & response by session 3. and Pt independently manages Intervention/Plan: Instruct on personal lipid levels & lipid goals/NCEP guidelines and Instruct on cholesterol Referral to dietitian:: Yes Diabetes (Other Core Measures) Diabetes Type: Not Applicable Weight Mgt (Other Care) Not Applicable: No Height: 6 ft 2 in Weight:: 170 lb BMI: 21.8 Diagnosis Overweight/Obesity BMI> 30% ICD-10 E66: No Diagnosis High BMI/Morbid Obesity BMI> 35% ICD-10 Z68: No Outcomes/Goals: Pt sets, maintains & shows weight loss goal & trend during rehab Intervention/Plan: Instruct on ideal BMI & set weight loss goal w/patient Healthy Eating Habits Will attend diet classes:: Yes Outcomes/Goals:: Consume diet rich in vegs,fruits,whole grain/high fiber,fish,lean meat and Limit sat/trans fats,cholesterol & added salts & sugars Intervention/Plan:: Assess current eating habits Education Gave educational materials for:: Healthy eating Core - Initial Assessment Visit Date of Eval: 02/15/24 Session #:: 0 (pre-program evaluation) Medication Compliance Preventative Medication(s):: Aspirin, Clopidogrel/P2Y12 inhibit, Statin/lipid, Beta juan manuel and Eliquis H/O mental health issues: depression, anxiety, or addiction?: Yes Doesn?t believe in the benefits of treatment?: No Believes medications are unnecessary or harmful?: No Has a concern about medication side effects?: No Expresses concern over the cost of medications?: No Outcomes/Goals: Verbalizes medications,desired effect & common side effects @ DC, Pt self-reports following medication regimen and Keeps card in wallet w/medications listed by DC Interventions/plans: Instruct on medication effects & side effects, Review medication list w/patient every two weeks and Instruct importance of taking meds as ordered & assist problem solving Tobacco Use Tobacco Use: Non-smoker Hypertension Hypertension Diagnosis:: Hypertension ICD-10 I10 Resting Blood Pressure:: 105/55 [place] [employer] Hypertension Guidelines Outcomes/Goals: Able to verbalize/achieve optimal blood pressure <130/80 and Incorporates diet changes & exercise for blood pressure control by DC Interventions/plan: Instruct on optimal blood pressure, hypertension & medications and Instruct on effects of sodium, alcohol, stress, exercise &hypertension Tobacco Cessation Referral Smoking Cessation Referral:: No Individual Education/Counseling:: No Education Schedule Given:: Yes Psychosocial - Initial Assess VIsit Date of Eval: 02/15/24 Session #:: 0 (pre-program evaluation) Not Applicable: No History of previous Mental disease:: Yes Self-reported stressors Other/Comments:: Chronic PTSD, cognitive deficit (unable to follow or understand commands) Target Goals Target Goals Psychosocial Test Tool Used:: Adolfo Carlisle QOL Cardiac and PHQ-9 Questionnaire phq-9 Severity Referral to Behavioral Health PS - Interventions: Yes: Attend Stress Management Classes and No: Referral to Behavioral Health if PHQ-9 score >9:, No: Referral to [facility] and No: Referral to Physician if PHQ-9 if score is 5-9: ([facility] Outcomes/Goals: See list Psychosocial Outcomes/Goals:: ID's personal stressors & 2 strategies to manage stress by discharge Intervention/Plan: See List Interventions/Plan:: Assess stressors,coping strategies & signs of derpression on admission, Instruct/assist pt to develop coping & personal stress Mgt strategies, Instruct patient to recognize signs & symptoms of depression and Instruct patient to recog Patient Health Questionnaire PHQ-9 Screening Initial Assessment: 1. Little interest or pleasure in doing things: Not at all 2. Feeling down, depressed, or hopeless: Not at all 3. Trouble falling or staying asleep, or sleeping too much: Not at all 4. Feeling tired or having little energy: Several days 5. Poor appetite or overeating: Not at all 6. Feeling bad about yourself -- or that you are a failure or have let yourself or your family down: Not at all 7. Trouble concentrating on things, such as reading the newspaper or watching television: Not at all 8. Moving or speaking so slowly that other people could have noticed. Or the opposite - being so fidgety or restless that you have been moving around a lot more than usual: Not at all 9. Thoughts that you would be better off , or of hurting yourself in some way: Not at all How difficult have these problems made it for you to do your work, take care of things at home, or get along with other people?: Not difficult at all Total Score: 1 SANCHO-Q SV Test Statements CAD is a disease of the arteries in the heart: False Examples of risk factors for heart disease: True Angina is chest pain or discomfort: True The benefits of resistance training include: True Eating more meat and dairy products: False Anti-platelet medications such as aspirin are important: True The only effective way to manage stress: False An exercise warm-up slowly increases heart rate: True Prepared, processed foods usually have high sodium: True Depression is common after a heart attack: True The statin medications lower cholesterol: True To control blood pressure, lower the amount of sodium: True If someone gets chest discomfort during walking: False Transfats are partially hydrogenated vegetable oils: True Sleep apnea that is not treated increases the risk: False To control cholesterol, one should become a vegetarian: True Someone knows if he/she is exercising at the right level: I Don't Know Diabetes cannot be prevented with exercise & health eating: False Stress is a large risk for heart attack: True A diet that can help lower blood pressure is rich in: True Total Score Total Correct Responses: 18 Self-Efficacy 6-Item Scale Initial Assessment: We would like to know how confident you are in doing certain activities. Please select your confidence level for: Fatigue Select Number: 7 Physical Discomfort or Pain Select Number: 9 Emotional Distress Select Number: 10 Other Symptoms or Health Problems Select Number: 6 Different Tasks and Activities Select Number: 8 Medication Select Number: 5 Total Score:: 7 Nutrition Survey Nutrition Survey Instructions Scoring Instructions Nutrition Survey Initial: Have you lost >10 lbs over the past 2 months without trying?: No Are you following a special diet at home for diabetes, low fat, or low salt?: No Are you interested in meeting with a dietitian for help understanding your diet?: No Do you eat less than 3 meals a day?: No Do you eat fatty meats (wallace, sausage, ribs, etc), fried foods, desserts, large amounts of salad dressings, margarine, butter, or cheese most days?: No Do you have food allergies? [Enter types in comment field]: No Do you eat in restaurants more than 3 times a week?: No Do you season food with salt, seasoning salt, or garlic salt?: Yes Do you used canned, boxed, frozen meals, or soups, seasoning packets?: No Total Score:: 1 Exercise - Final/Discharge Physician Prescribed Exercise Modalities: Treadmill, Airdyne and NuStep Frequency: 3x/week for 12 weeks [36 sessions] Intensity: 60-80% of age predicted maximum heart rate reserve Current METSs:: 3.0 Target Heart Rate:: 93-107 Nutrition - 30-Day Assessment Weight Mgt (Other Care) Height: 6 ft 2 in Weight:: 170 lb BMI: 21.8 Nutrition - 60-Day Assessment Weight Mgt (Other Care) Height: 6 ft 2 in Weight:: 170 lb BMI: 21.8 Core - 30-Day Assessment Visit Session #:: 0 (Pre-program evaluation) Core - Final Assessment Hypertension Resting Blood Pressure:: 105/55 [employer] [employer] Hypertension Guidelines Core - 60-Day Assessment Hypertension Resting Blood Pressure:: 105/55 [employer] [employer] Hypertension Guidelines Psychosocial - 30-Day Assess Target Goals Target Goals Referral to Behavioral Health PS - Interventions: Yes: Attend Stress Management Classes and No: Referral to Behavioral Health if PHQ-9 score >9:, No: Referral to [facility] and No: Referral to Physician if PHQ-9 if score is 5-9: (Treated through [facility] Psychosocial - 60-Day Assess Target Goals Target Goals Referral to Behavioral Health PS - Interventions: Yes: Attend Stress Management Classes and No: Referral to Behavioral Health if PHQ-9 score >9:, No: Referral to [facility] and No: Referral to Physician if PHQ-9 if score is 5-9: (Treated through [facility] Psychosocial - 90-Day Assess Target Goals Target Goals Referral to Behavioral Health PS - Interventions: Yes: Attend Stress Management Classes and No: Referral to Behavioral Health if PHQ-9 score >9:, No: Referral to [facility] and No: Referral to Physician if PHQ-9 if score is 5-9: (Treated through [facility] Psychosocial - Final Assessmen Target Goals Target Goals Referral to Behavioral Health PS - Interventions: Yes: Attend Stress Management Classes and No: Referral to Behavioral Health if PHQ-9 score >9:, No: Referral to [facility] and No: Referral to Physician if PHQ-9 if score is 5-9: (Treated through [facility] Nutrition - 90-Day Assessment Weight Mgt (Other Care) Height: 6 ft 2 in Weight:: 170 lb BMI: 21.8 Nutrition - Final Assessment Program Goals Patient has diagnosis of Hyperlipidemia (ICD E78)?: Yes Weight Mgt (Other Care) Height: 6 ft 2 in Weight:: 170 lb BMI: 21.8
--- NOTE | 2024-02-15 09:52 | CR.HP_ITS ---
CR - History & Physical General Arrival date:: 02/15/24 Arrival time:: 09:52 Date of Referral:: 01/12/24 Date of CR Evaluation:: 02/15/24 Referring Physician: LUIS SAUNDERS (Dr. [facility]) Primary Diagnosis: PCI w/coronary stenting History of Present Cardiac Event Onset Date PTCA or coronary stenting:: Yes Vessel: History of A-fib for 7-8 years Type of Symptoms:: History of A-Fib for about 7-8 years, was scheduled for an ablation procedure, taken in for the procedure and ended up with new stents. Interventions with present event:: PCI w/coronary stenting Were there any complications?: No Medications Ambulatory Orders Medication Instructions Recorded Ascorbic Acid [Vitamin C] 500 mg PO DAILY 02/04/21 acetaminophen 325 mg tablet 650 mg PO TID fever or pain 02/04/21 apixaban 5 mg tablet 5 mg PO BID 02/04/21 aspirin 81 mg tablet,delayed 81 mg PO DAILY not taking 02/04/21 release atenolol 25 mg tablet 25 mg PO QHS HEART 02/04/21 atorvastatin 20 mg tablet 20 mg PO QHS CHOLESTEROL 02/04/21 bisacodyl 5 mg tablet 10 mg PO QHS LAXATIVE 02/04/21 calcium carbonate 650 mg PO BID 02/04/21 cholecalciferol (vitamin D3) 50 2,000 unit PO DAILY 02/04/21 mcg (2,000 unit) capsule cyanocobalamin (vitamin B-12) 100 100 mcg PO DAILY 02/04/21 mcg tablet folic acid 1 mg tablet 1 mg PO DAILY 02/04/21 levothyroxine 150 mcg tablet 150 mcg PO MOTUWETHFRSA 02/04/21 losartan 100 mg tablet 100 mg PO DAILY 02/04/21 omeprazole 20 mg capsule,delayed 20 mg PO BID 02/04/21 release potassium citrate 10 mEq (1,080 10 meq PO 4X/DAY 02/04/21 mg) tablet,extended release zolpidem 10 mg tablet 10 mg PO QHS SLEEP 02/04/21 topiramate 200 mg tablet (Topamax) 200 mg PO BID 12/24/23 clopidogrel 75 mg tablet (Plavix) 75 mg PO DAILY stent 12/25/23 docusate sodium 100 mg capsule 100 mg PO QHS constipation 12/25/23 ferrous sulfate 325 mg (65 mg 325 mg PO DAILY 30 days #30 tabs 12/25/23 iron) tablet potassium citrate 10 mEq (1,080 10 meq PO BID supplement 12/25/23 mg) tablet,extended release sucralfate 1 gram tablet (Carafate) 1 g PO BID gerd 12/25/23 fluticasone propionate 50 1 spray intranasal DAILY PRN 02/15/24 mcg/actuation nasal allergy symptoms spray,suspension (24 Hour Allergy Relief) tamsulosin 0.4 mg capsule 0.4 mg PO DAILY 02/15/24 tramadol 50 mg tablet 50 mg PO Q6H 02/15/24 zolpidem 10 mg tablet 02/15/24 Allergies Allergies No Known Allergies Allergy (Verified 12/24/23 15:52) Sleep Disorder Evaluation Hx of Sleep Apnea: No Do you snore loudly (louder than talking or can be heard through closed doors)?: Yes Do you often feel tired/ fatigued/ sleepy during daytime?: No Has anyone observed you stop breathing during sleep?: No History of Hypertension (for STOP score): Yes STOP Results: Positive tested was neg. Advanced Directives Advanced Directives Power of Construction Recruiter: No Living Will: No Advance Directives Information Provided: Yes Advance Directives on File: No DNR Order?:: No MOLST See MOLST form: No Past Medical History Covid-19 Screening Physicial Symptoms Fever: No Unexplained muscle aches: No Current respiratory symptoms: No Upper respiratory infections symptoms: No Gastro-intestinal symptoms: Yes [id number] symptoms: Yes (Seasonal allergies) Other Clinical Concerns Has tested positive for COVID-19 in last 30 days: No Exposure Risk Had contact w/person w/symptoms or Covid-19 (+) last 14 days: No Has High Risk Exposures ID'd by Health dept/Inf Control team: No Pertinent Comorbidities 65 years or older:: Yes Lives in Assisted Living facility:: No Has a chronic lung disease or moderate to severe asthma:: No Has a serious heart condition:: Yes Immunocompromised:: Yes Severely obese (Body Mass Index of 40 or higher):: No Diabetic:: No Has chronic kidney disease undergoing dialysis:: No Has liver disease:: No Past Medical Illness Past Medical History (Updated 02/15/24 @ 10:16 by Magan Alvares, TOUR NARRATOR, LICENSED GUIDE, BS) Arthritis M19.90 Bilateral pseudophakia Z96.1 Bladder stones N21.0 BPH (benign prostatic hyperplasia) N40.0 CAD (coronary artery disease) I25.10 PCI [facility] 09/[facility]23 Cardiology follow-up encounter Z09 [facility] DE[facility]Y [facility]NA[facility]/LAST VISIT 18 MONTHS AGO Chronic post-traumatic stress disorder (PTSD) F43.12 Difficult Mathis catheter placement T83.9XXA Dry eyes, bilateral H04.123 DVT (deep venous thrombosis) I82.409 Erectile dysfunction N52.9 Former smoker Z87.891 Gastric reflux K21.9 History of prostate cancer Z85.46 s/p radiation. History of thyroid cancer Z85.850 Papillary thyroid carcinoma, Dx 2005 HLD (hyperlipidemia) E78.5 Hx of radiation therapy Z92.3 2005 Hypertension I10 Hypothyroidism E03.9 Idiopathic peripheral neuropathy G60.9 Inguinal hernia K40.90 Injury of back S39.92XA IN YRS/PRN PAIN Kidney stones N20.0 Loss of hearing H91.90 PAF (paroxysmal atrial fibrillation) I48.0 Peripheral neuropathy G62.9 BLE Prostate cancer C61 BPH, Prostate CA s/p radiation. 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 Syeda Levin MD) History of bilateral knee replacement Z96.653 2011 History of cardiac catheterization Z98.890 2000 History of cataract removal with insertion of prosthetic lens Z98.49, Z96.1 2015 History of foot surgery Z98.890 between [id number]; william feet (due to damage obtained in the ) History of heart artery stent Z95.5 1990, 1994, 2005, 09/2023 [place] History of hernia repair Z98.890, Z87.19 2019 - abdomen History of oral surgery Z98.890 2012 - root damage from radiation in 2004 History of thyroidectomy E89.0 2005 Family History Summary Family History Mother Breast cancer remission for 20 years, returned and passed within a few weeks Father Prostate cancer, Onset Age: 81 passed in March 2007 Brother Alcoholism Grandmother Pancreatic cancer paternal CVA (cerebral vascular accident) maternal Social History Smoking History Smoking Status: Former smoker Years Smokin Packs Smoked per Day: 1 Hx Tobacco Use: Yes Hx Smoking Exposure: No Alcohol Use Alcohol Usage: Yes (rarely) Substance Abuse Hx Substance Use: No Occupation Occupation (List type of work in comments):: Retired Hobbies, Recreation, Social Activities Hobbies: Other (gardening, yard work) Recreational Activities: I am able to engage in most, but not all activities (what ever needs to be done, am able to do.) Social Environment Status Marital Status: Children How many children do you have?: 2 Do any of your children live nearby?: Yes Safety Do you feel safe in your surroundings?: Yes Assistance Do you need any assistance at home?: no Review of Systems Review of Systems Hints Review of Present Symptoms: Reports Fatigue, Heart Arrhythmia/Irregularities (Chronic Atrial Fib, 3rd Degree AV block), Appetite - Normal and Sleep - Normal; Denies Shortness of Breath at Rest, Shortness of Breath with Exertion, Operative Discomfort, Angina, Dizziness/Lightheadedness, Appetite - Special Diet or Sexual Changes Pain Is Patient Pain Free?: Yes Pain Location: neck, back, upper extremity (shoulders arthritis) and lower extremity (bilateral knee replacement) Pain Level: 6/10 Risk Factor Assessment Vital Signs Temperature: 97.8 F Respiratory Rate: 14 Pulse Ox: 98 Blood Pressure: 105/55 Pulse Pulse Rate: 65 Pulse Rhythm: Regular Hypertension Blood Pressure Sitting - Right Arm: 105/55 Blood Cholesterol/Lipids Total Cholesterol (mg/dL) Goal = less than 200 mg/dL: 108 HDL Cholesterol (mg/dL) Goal = less than 40 mg/dL: 34 LDL Cholesterol (mg/dL) Goal = less than 70 mg/dL: 58 Triglycerides (mg/dL) Goal = less than 150 mg/dL: 103 Diabetes Nutrition Referral for Diabetes: No Obesity Height: 6 ft 2.02 in Weight:: 170 lb Weight in Pounds: 170.0 lbs Weight Source: Stated by Patient Body Mass Index (BMI): 21.8 Nutritional Referral for Obesity: No Physical Inactivity Physical Inactivity: None (physically active but no regular exercise) For Smoking Smoking Risk Guidelines For Dyslipidemia Dyslipidemia Risk Guidelines For Diabetes Mellitus Diabetes Risk Guidelines For Obesity/Overweight Obesity/Overweight Risk Guidelines For Hypertension Hypertension Risk Guidelines For Sedentary Lifestyle Sedentary Lifestyle Risk Guidelines For Depression Depression Risk Guidelines Family History Family History Mother Breast cancer remission for 20 years, returned and passed within a few weeks Father Prostate cancer, Onset Age: 81 passed in March 2007 Brother Alcoholism Grandmother Pancreatic cancer paternal CVA (cerebral vascular accident) maternal Motivation Motivation to Participate On a scale of 1 to 10, how prepared are you to commit to attending program?: 10 What do you see as barriers to successfully being able to complete the program?: bilateral knee pain, neuropathy in leg may interfer with treadmill walking What do you see as the benefits of succesfully completing the program? In other words, what do you hope to get out of participating in the program?: get in shape for future surgery Are there issues you are dealing with that will interfere with completing the program?: pain joints Do you have a spouse or signficant other, family or friends who will help support you to complete the program?: yes
[2024-02-15 10:12] VITALS: BP 105/55; BMI 21.8
[2024-02-15 10:32] VITALS: BP 105/55; PULSE 65; RESP 14; TEMP 36.6; O2SAT 98; BMI 21.8
== END | disposition home or self-care (01) ==
DX: Z95.5 Presence of coronary angioplasty implant and graft (principal); I48.0 Paroxysmal atrial fibrillation; R06.83 Snoring; I10 Essential (primary) hypertension; M19.90 Unspecified osteoarthritis, unspecified site; Z96.1 Presence of intraocular lens; N40.0 Benign prostatic hyperplasia without lower urinary tract symptoms; I25.10 Atherosclerotic heart disease of native coronary artery without angina pectoris; F43.12 Post-traumatic stress disorder, chronic; H04.123 Dry eye syndrome of bilateral lacrimal glands; Z86.718 Personal history of other venous thrombosis and embolism; N52.9 Male erectile dysfunction, unspecified; Z87.891 Personal history of nicotine dependence; K21.9 Gastro-esophageal reflux disease without esophagitis; Z85.46 Personal history of malignant neoplasm of prostate; Z85.850 Personal history of malignant neoplasm of thyroid; E78.5 Hyperlipidemia, unspecified; Z92.3 Personal history of irradiation; E03.9 Hypothyroidism, unspecified; G60.9 Hereditary and idiopathic neuropathy, unspecified; K40.90 Unilateral inguinal hernia, without obstruction or gangrene, not specified as recurrent; N20.0 Calculus of kidney; G62.9 Polyneuropathy, unspecified; H90.3 Sensorineural hearing loss, bilateral; M25.519 Pain in unspecified shoulder; M47.812 Spondylosis without myelopathy or radiculopathy, cervical region; M47.816 Spondylosis without myelopathy or radiculopathy, lumbar region; Z97.3 Presence of spectacles and contact lenses; Z97.2 Presence of dental prosthetic device (complete) (partial); Z96.653 Presence of artificial knee joint, bilateral; Z98.890 Other specified postprocedural states; Z98.49 Cataract extraction status, unspecified eye; Z87.19 Personal history of other diseases of the digestive system; R53.83 Other fatigue

== ENCOUNTER 2024-03-18 13:00 | Outpatient (RCR) | payer OTHER, SELFPAY ==
[2024-02-15 10:12] VITALS: BMI 21.8
--- NOTE | 2024-03-16 09:46 | CR.ITP_ITS ---
Exercise - Initial Assessment Visit Session #:: 11 Physician Prescribed Exercise Modalities: Treadmill and SciFit Lateral [place] Nutrition - Initial Assessment Weight Mgt (Other Care) Height: 6 ft 2 in Weight:: 169 lb BMI: 21.7 Psychosocial - Initial Assess Target Goals Target Goals Patient Health Questionnaire PHQ-9 Screening 30-Day Re-eval Assessment: 1. Little interest or pleasure in doing things: Not at all 2. Feeling down, depressed, or hopeless: Not at all 3. Trouble falling or staying asleep, or sleeping too much: Not at all 4. Feeling tired or having little energy: Several days 5. Poor appetite or overeating: Not at all 6. Feeling bad about yourself -- or that you are a failure or have let yourself or your family down: Not at all 7. Trouble concentrating on things, such as reading the newspaper or watching television: Not at all 8. Moving or speaking so slowly that other people could have noticed. Or the opposite - being so fidgety or restless that you have been moving around a lot more than usual: Not at all 9. Thoughts that you would be better off , or of hurting yourself in some way: Not at all How difficult have these problems made it for you to do your work, take care of things at home, or get along with other people?: Not difficult at all Total Score: 1 Self-Efficacy 6-Item Scale 30-Day Re-eval Assessment: We would like to know how confident you are in doing certain activities. Please select your confidence level for: Fatigue Select Number: 7 Physical Discomfort or Pain Select Number: 9 Emotional Distress Select Number: 10 Other Symptoms or Health Problems Select Number: 6 Different Tasks and Activities Select Number: 8 Medication Select Number: 5 Total Score:: 7 Nutrition Survey Nutrition Survey Instructions Scoring Instructions Exercise - 30-day Assessment Visit Date of Eval: 03/16/24 Session #:: 11 Physician Prescribed Exercise Modalities: Treadmill and SciFit Lateral [place] Frequency: 3x/week for 12 weeks [36 sessions] Intensity: 60-80% of age predicted maximum heart rate reserve Duration: 30 - 45 minutes Current METSs:: 3.5 Target Heart Rate:: 97-113 Current RPE:: 11-13 Maximum Excercise HR:: 82 Resting Blood Pressure: 100/50 Maximum Exercise Blood Pressure: 118/66 EKG Type: A fb with variable rate with rare PVC, 2 couplets Outcomes & Goals Goals:: Verbalizes understanding of THR, RPE & goal METS by session 6, Documents in home exercise log/reports 30 min aerobic 5 day/wk by DC, Demonstrates accurate pulse taking by DC and Other additional outcome/goals: see below Intervention & Plan Exercise Program Goals: Instruct on personal THR & RPE, Instruct on MET level & personal MET goal, Show patient to take own pulse /validate performance until accurate, Instruct on home exercise and Other additional plan/int 30-day Reassessments 30 day Reassessments:: Progressing Reassessment Notes & Comments:: RPE explained Physical Activity Home Exercise Physical Activity - Home Exercise: Safe Exercise, Warm-up, Self-monitoring, Cool-Down, Home Exercise > 30 min Daily and Sitting Time <3 hours/daily Outcomes & Goals Outcomes/Goals: Demonstrates correct Warm-up/exercise Cool-Down (S3) if = 2.5 METs, Verbalizes symptoms of exercise intolerance by Session 3 (S3), Demonstrate safe equipment use (S3) & follows exercise prescrition (6) and Other: See below Intervention & Plan Plan/Intervention: Instruct warm-up & cool-down if exercising at > 2 METs, Instruct on symptoms of exercise intolerance & actions to take, Instruct & monitor on saf, Assess intial functional capacity & safety risk and Other See below 30-day Reassessments 30 day Reassessments:: Progressing Reassessment Notes & Comments:: warm up encouraged Exercise - 60-day Assessment Physician Prescribed Exercise Modalities: Treadmill and SciFit Lateral [place] Exercise - 90-day Assessment Physician Prescribed Exercise Modalities: Treadmill and SciFit Lateral [place] Exercise - Final/Discharge Physician Prescribed Exercise Modalities: Treadmill and SciFit Lateral [place] Nutrition - 30-Day Assessment Program Goals Nutrition Program Goals Patient has diagnosis of Hyperlipidemia (ICD E78)?: Yes Visit Date of Eval: 03/16/24 Session #:: 11 Cholesterol/Lipids (Other Core Measures) Determine presence & major risk factors that modify LDL goal: Hypertension or hypertensive medication, Low HDL cholesterol <40 mg/dL*, Family history of premature CHD in Male < 55 years: female <65 yearsFa and Age men > 45 years; women >/= 55 years Outcomes/Goals: Pt IDs own risk factors & lifestyle modifications by Session 10, Verbalizes symptoms of angina & response by session 3., Pt independently manages and Other Additional Outcomes/Goals: Intervention/Plan: Advocate for lipid panel cholesterol medication if applicable, Instruct on personal lipid levels & lipid goals/NCEP guidelines, Instruct on cholesterol and Other additional plan/int Referral to dietitian:: Yes 30-day Reassessments:: Progressing Reassessment Notes & Comments:: pt to attend nutrition class Diabetes (Other Core Measures) Diabetes Type: Not Applicable Weight Mgt (Other Care) Height: 6 ft 2 in Weight:: 169 lb BMI: 21.7 Diagnosis Overweight/Obesity BMI> 30% ICD-10 E66: No Diagnosis High BMI/Morbid Obesity BMI> 35% ICD-10 Z68: No Outcomes/Goals: Pt sets, maintains & shows weight loss goal & trend during rehab and Other additional outcomes/goals Intervention/Plan: Instruct on ideal BMI & set weight loss goal w/patient, Assist pt to ID & incorporate diet changes for weight loss by S9, Refer to Structured Weight Loss program as appropriate, Encourage goal of using 250- 300dcal per session for weight loss and Other additional plan/interventions 30 day Reassessments:: Progressing Reassessment Notes & Comments:: pt to attend nutrition class Healthy Eating Habits Will attend diet classes:: Yes Outcomes/Goals:: Consume diet rich in vegs,fruits,whole grain/high fiber,fish,lean meat, Limit sat/trans fats,cholesterol & added salts & sugars and Other additional outcome/goals: Intervention/Plan:: Assess current eating habits and Other Additional plan/interventions 30-day Reassessments:: Progressing Reassessment Notes & Comments:: pt to attend nutrition class Education Gave educational materials for:: Signs & symptoms of hypoglycemia, Signs & symptoms of hyperglycemia, Relate diabetes to coronary artery disease and Healthy eating Nutrition - 60-Day Assessment Weight Mgt (Other Care) Height: 6 ft 2 in Weight:: 169 lb BMI: 21.7 Core - 30-Day Assessment Visit Date of Eval: 03/16/24 Session #:: 11 Medication Compliance Preventative Medication(s):: Aspirin, Clopidogrel/P2Y12 inhibit, Statin/lipid, Beta juan manuel and Eliquis H/O mental health issues: depression, anxiety, or addiction?: Yes Doesn?t believe in the benefits of treatment?: No Believes medications are unnecessary or harmful?: No Has a concern about medication side effects?: No Expresses concern over the cost of medications?: No Outcomes/Goals: Verbalizes medications,desired effect & common side effects @ DC, Pt self-reports following medication regimen, Keeps card in wallet w/medications listed by DC and Other additional outcome/goals: Interventions/plans: Instruct on medication effects & side effects, Review medication list w/patient every two weeks, Instruct importance of taking meds as ordered & assist problem solving and Other additional 30-day Reassessments:: Progressing Reassessment Notes & Comments:: pt encouraged to take his meds Tobacco Use Tobacco Use: Non-smoker Hypertension Hypertension Diagnosis:: Hypertension ICD-10 I10 Resting Blood Pressure:: 100/50 [place] [employer] Hypertension Guidelines Peak Exercise Blood Pressure:: 118/66 Outcomes/Goals: Able to verbalize/achieve optimal blood pressure <130/80, Incorporates diet changes & exercise for blood pressure control by DC and Other additional outcomes/goals Interventions/plan: Instruct on optimal blood pressure, hypertension & medications, Instruct on effects of sodium, alcohol, stress, exercise &hypertension and Other additional plan/interventions 30 day Reassessments:: Met Tobacco Cessation Referral Smoking Cessation Referral:: No Individual Education/Counseling:: No Education Schedule Given:: Yes Psychosocial - 30-Day Assess VIsit Date of Eval: 03/16/24 Session #:: 11 History of previous Mental disease:: Yes (chronic PTSD, cognitive deficit (pt is unable to follow of understand comma) Target Goals Target Goals Outcomes/Goals: See list Psychosocial Outcomes/Goals:: ID's personal stressors & 2 strategies to manage stress by discharge and Other Additional outcome/goals: Intervention/Plan: See List Interventions/Plan:: Assess stressors,coping strategies & signs of derpression on admission, Instruct/assist pt to develop coping & personal stress Mgt strategies, Refer to Behavioral Health if appropriate, Refer to Physician if appropriate, Instruct patient to recognize signs & symptoms of depression, Instruct patient to recog and Other additional plan/intervention 30-day Reassessments: 30 day Reassessments:: Met Psychosocial - 60-Day Assess Target Goals Target Goals Outcomes/Goals: See list Psychosocial Outcomes/Goals:: ID's personal stressors & 2 strategies to manage stress by discharge and Other Additional outcome/goals: Psychosocial - 90-Day Assess Target Goals Target Goals Psychosocial - Final Assessmen Target Goals Target Goals Nutrition - 90-Day Assessment Weight Mgt (Other Care) Height: 6 ft 2 in Weight:: 169 lb BMI: 21.7 Nutrition - Final Assessment Weight Mgt (Other Care) Height: 6 ft 2 in Weight:: 169 lb BMI: 21.7
[2024-03-16 09:57] VITALS: BP 100/50; BMI 21.7
== END 2024-03-18 23:59 ==
LOC: CR 13:00
DX: Z98.61 Coronary angioplasty status (principal)
CPT/HCPCS: 93798

== ENCOUNTER 2024-04-11 13:00 | Outpatient (RCR) | payer OTHER, SELFPAY ==
[2024-03-16 09:57] VITALS: BMI 21.7
[2024-03-19 01:34] VITALS: BP 100/50
--- NOTE | 2024-04-15 08:33 | CR.ITP_ITS ---
Psychosocial - Initial Assess Target Goals Target Goals Nutrition Survey Nutrition Survey Instructions Scoring Instructions Exercise - 60-day Assessment Visit Date of Eval: 04/15/24 Session #:: 22 Comments:: Pt will not continue CR due to severe joint pain. States he is going to [facility] and considering water therapy. Psychosocial - 30-Day Assess Target Goals Target Goals Psychosocial - 60-Day Assess Target Goals Target Goals Psychosocial - 90-Day Assess Target Goals Target Goals Psychosocial - Final Assessmen Target Goals Target Goals
== END 2024-04-17 23:59 ==
LOC: CR 13:00
DX: I25.10 Atherosclerotic heart disease of native coronary artery without angina pectoris (principal); Z98.61 Coronary angioplasty status
CPT/HCPCS: 93798